=== PATIENT | male | born 1955 | race Caucasian/White ===

== ENCOUNTER → 2017-03-03 | Outpatient (CLI) | payer BC ==
[~2017-03-03] MED LIST: OPTIRAY 320 IV PRN
--- NOTE | 2017-03-03 18:07 | DIAGNOSTIC IMAGING REPORT ---
CT OF THE CHEST WITH IV CONTRAST CLINICAL HISTORY: Metastatic Seibert cell carcinoma. COMPARISON STUDY: No previous studies for comparison. TECHNIQUE: Following the IV administration of 94 mL of Optiray-320, CT of the thorax was performed from the thoracic inlet to the lung bases. Images are reviewed in the axial, sagittal, and coronal planes. IV contrast was administered without complication. A dose lowering technique was utilized adhering to the principles of ALARA. CT DOSE: FINDINGS: Thyroid: There is an ill-defined 2 cm left lobe thyroid nodule containing calcifications. If not previously performed, thyroid ultrasonography should be obtained in follow-up. Thoracic aorta: The thoracic aorta is normal in course and caliber, noting standard 3-vessel arch anatomy. No aneurysm or dissection is seen. Pulmonary vasculature: The pulmonary trunk is normal in caliber. There are no central filling defects identified to suggest pulmonary embolus. Note that this examination was not protocoled for the evaluation of pulmonary emboli. HEART: The heart is normal in size and configuration, without pericardial effusion. Lungs and pleural spaces: No pleural effusions are visualized. There is no focal pulmonary consolidation. There are bibasal atelectatic changes. No suspicious pulmonary masses are visualized. There are several areas of very low suspicion nodular thickening along the fissures. Mediastinum: Mediastinal lymph nodes are the upper limits of normal in diameter measuring up to 9 mm. Hannah: There is no evidence of pathologic hilar adenopathy. Axilla: There is no evidence of pathologic axillary lymphadenopathy. Upper abdomen: There are bilateral adrenal gland masses measuring 35 mm in the right and 31 mm on the left. Skeletal structures: There are no lytic or blastic osseous lesions. IMPRESSION: 1. Multinodular thyroid gland including a dominant 2+ centimeter left lobe thyroid nodule containing calcifications. If not previously performed, thyroid ultrasonography should be obtained in follow-up 2. Mediastinal lymph nodes at the upper limits of normal in size 3. No evidence of intrapulmonary metastasis 4. Bilateral adrenal gland enlargement. Electronically signed by: Gabriel Mack M.D. 03/03/2017 6:05 PM Dictated Date/Time: 03/03/2017 5:58 PM
--- NOTE | 2017-03-03 18:30 | DIAGNOSTIC IMAGING REPORT ---
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 TECHNIQUE: Following the IV administration of 94 mL of Optiray-320, CT scan of the abdomen and pelvis was performed from the lung bases to the proximal femurs. Images are reviewed in the axial, sagittal, and coronal planes. IV contrast was administered without complication. A dose lowering technique was utilized adhering to the principles of ALARA. CT DOSE: 727.11 mGy.cm FINDINGS: Lower chest: There are bibasilar opacities, likely atelectatic. Liver: There are no suspicious hepatic masses. There is focal fat surrounding the falciform ligament. The hepatic veins and portal veins appear patent. Gallbladder: Unremarkable. Spleen: Normal in size and attenuation. Pancreas: Unremarkable. Adrenal glands: There is bilateral adrenal gland enlargement. The right adrenal gland measures 3.5 cm. The left adrenal gland measures 3.1 cm. Kidneys: No solid renal masses are visualized. There are multiple left parapelvic cysts versus mild hydronephrosis. There is no ureteral dilatation. Bowel: There are no transition zones to indicate bowel obstruction. There is no acute diverticulitis. The appendix appears normal. Peritoneum: There is no intraperitoneal free air or abdominal ascites. Vasculature: There are multiple inguinal and abdominal wall collateral vessels. The infrarenal inferior vena cava appears occluded. There are enlarged gonadal veins. There is no evidence of aortic aneurysm. Adenopathy: The presence of the multiple venous collaterals makes evaluation for adenopathy difficult. There is a probable 14 mm aortocaval lymph node. Pelvic viscera: The bladder, and pelvic viscera are unremarkable. Skeletal structures: There is an old superior endplate L2 compression deformity. No destructive lesions are visualized. IMPRESSION: 1. Bilateral adrenal gland enlargement 2. 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 Assessment for adenopathy is difficult due to the multiple collateral veins. There is a probable 14 mm aortocaval lymph node Electronically signed by: Gabriel Mack M.D. 03/03/2017 6:29 PM Dictated Date/Time: 03/03/2017 6:19 PM
== END | disposition home or self-care (01) ==
LOC: C.CTS 15:28
PROVIDERS: ATTEND Student in an Organized Health Care Education/Training Program
DX: I82.412 Acute embolism and thrombosis of left femoral vein (principal); E27.8 Other specified disorders of adrenal gland; Z85.821 Personal history of Merkel cell carcinoma

== ENCOUNTER 2023-06-25 11:48 | Inpatient (IN) ==
--- OUTSIDE RECORDS SUMMARY | 2023-06-25 11:53 | External Medical Summary | Summary of Care ---
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 5 Tab 0 02/22/2019 Active Additional Information Patient taking differently: 15 mgOral DINNER, Reported on 08/10/2022 Zoster Vac Recomb Adjuvanted 50 MCG/0.5ML Intramuscular Suspension Reconstituted (Shingrix)Indication s:Need for vaccination for zoster Inject 0.5 mL into a large muscle now and repeat dose in 60 to 180 days 1 Each 1 07/29/2021 Active Additional Information Patient not taking.Reported on 10/20/2022 Benzonatate 100 MG Oral Capsule (Tesaquiles Sharma)Indications:U pper respiratory tract infection, unspecified type Take by mouth 1 Capsule as needed in the morning AND 1 Capsule as needed at noon AND 1 Capsule as needed in the evening for Cough. 15 Capsule 0 02/16/2022 Active Additional Information Patient not taking.Reported on 10/20/2022 Triamcinolone Acetonide 0.1 % External Cream (Aristocort) Apply to rash on trunk and extremities twice daily as needed 453.6 g 0 08/23/2022 Active Additional Information Patient not taking.Reported on 10/20/2022 Erythromycin 5 MG/GM Ophthalmic Ointment Apply .25 inch ribbon to right eye incision 4 times daily for 14 days then daily at bedtime. 3.5 g 3 09/08/2022 Active Additional Information Patient not taking.Reported on 10/20/2022 Tadalafil 5 MG Oral Tablet (Cialis) Take 1 Tablet by mouth in the morning. prior to intercourse, no more than 1 dose in 24 hours. 30 Tablet 5 02/23/2023 Active Additional Information Patient not taking.Reported on 03/18/2023 documented as of this encounter (statuses as of 03/18/2023) Active Problems Problem Noted Date History of DVT (deep vein thrombosis) Hx of actinic keratosis 12/22/2016 Hx of nonmelanoma skin cancer 12/22/2016 Overview: SCCIS R dorsal forearm near elbow 10/2020, SCC R dorsal forearm 03/2019, prior BCC and SCCs, AKs,no scansin chart Elevated LDL cholesterol level 7 Encounter for antineoplastic chemotherap y 01/20/2016 Metastatic Lykens cell carcinoma to lymp h node 01/12/2016 History of pulmonary embolus (PE) Overview: on lovenox documented as of this encounter (statuses as of 03/18/2023) Resolved Problems Problem Noted Date Resolved Date Atrial fibrillation 10/21/2017 Overview: cardizem gtt initially and then transferred to oral. then A fib resolved. occured when he had PE. Femoral vein thrombosis 10/22/19 Overview: 07/2015, while on Xalrelto documented as of this encounter (statuses as of 03/18/2023) Immunizations Name Administration Dates Next Due COVID-19 mRNA, LNP-s, No Pre serve, 2-Dose Series (Pfizer) 04/29/2021,08/27/2020,07/30/2020 Pneumococcal Conjugate Vacc, 13 Valent (Prevnar) 03/20/2016 Pneumococcal Polysaccharide PPV23 (Pneumovax) 03/20/2015,02/18/2015 SEASONAL INFLUENZA, PF, 6 M & Above, IM , (FLULAVAL or FLUZONE) 02/21/2020 Seasonal Influenza, Quadriva lent Hd (Fluzone Hd) 03/24/2021 Seasonal Influenza, Quadriva lent, No Preserve, IM 03/07/2018,03/07/2017,03/08/2016 TDAP (age 10 and older)(Boostrix) 04/13/2017 04/13/2027 Varicella Zoster Vaccine (Adult) 03/28/2015 documented as of this encounter Social History Tobacco Use Types Packs/Day Years Used Date Smoking Tobacco: Never Smokeless Tobacco: Never Tobacco Cessation:Counseling Given: Not Answered Alcohol Use Standard Drinks/Week Comments No 0 (1 standard drink = 0.6 oz pur e alcohol) Food Insecurity Answer Date Recorded Within the past 12 months, y ou worried that your food would run out before you got money to buy more. Never true 02/10/2023 Within the past 12 months, t he food you bought just didn't last and you didn't have money to get more. Never true 02/10/2023 Sex Assigned at Date Recorded Male 09/21/2018 1:49 PM E DT Job Start Date Occupation Industry Not on file Not on file Not on file documented as of this encounter Last Filed Vital Signs Vital Sign Reading Time Taken Comments Blood Pressure 112/72 03/18/2023 9:53 AM EDT Pulse 65 03/18/2023 9:53 AM EDT Temperature 36.3 C (97.3 F) 03/18/2023 9:53 AM ED T Respiratory Rate 16 03/18/2023 9:53 AM EDT Oxygen Saturation 97% 03/18/2023 9:53 AM EDT Inhaled Oxygen Concentration - - Weight 84.9 kg (187 lb 3.2 oz) 03/18/2023 9:53 A M EDT Height 180.3 cm (5' 11") 03/18/2023 9:53 AM EDT Body Mass Index 26.11 03/18/2023 9:53 AM EDT documented in this encounter Progress Notes * Rosa Marvin Craft, DO - 03/18/2023 10:32 AM EDT Subjective: Don Gray II is a 67 year old male. Chief Complaint Patient presents with Follow Up HPI: 67 year old male here today for a routine follow-up. Hx of Lykens cell cancer and continues to follow with Dr Fairbanks at [facility] and is on Opdivo. Last PET scan showed left thyroid nodule. No new cancer, this was in January. This was stable. Willing to get thyroid scan. Sister with hx of thyroid cancer. His CBC was unremarkable from last month. This was reviewed. Continues to take the Xarelto and is on this daily for hx of recurrent DVT and PE. Remains active daily. Bikes daily. Continues to eat healthy. Takes the Cialis daily for BPH symptoms. He would like psa profile test completed. Carries hx of familial hypercholesterolemia, and would like lipids repeated. 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 He had seen [facility]. He has an arranged COVID booster for Tuesday and will return in a few weeks for the annual flu vaccine. His colonoscopy was completed and showed benign polyps to get repeated in 3 years. 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 (Patient taking differently: Take 15 mg by mouth daily with dinner.) 5 Tab 0 Zoster Vac Recomb Adjuvanted 50 MCG/0.5ML Intramuscular Suspension Reconstituted (Shingrix) Inject 0.5 mL into a large muscle now and repeat dose in 60 to 180 days (Patient not taking: Reported on 10/20/2022) 1 Each 1 Benzonatate 100 MG Oral Capsule (Tessalon Perles) Take by mouth 1 Capsule as needed in the morning AND 1 Capsule as needed at noon AND 1 Capsule as needed in the evening for Cough. (Patient not taking: Reported on 10/20/2022) 15 Capsule 0 Triamcinolone Acetonide 0.1 % External Cream (Aristocort) Apply to rash on trunk and extremities twice daily as needed (Patient not taking: Reported on 10/20/2022) 453.6 g 0 Erythromycin 5 MG/GM Ophthalmic Ointment Apply .25 inch ribbon to right eye incision 4 times daily for 14 days then daily at bedtime. (Patient not taking: Reported on 10/20/2022) 3.5 g 3 Tadalafil 5 MG Oral Tablet (Cialis) Take 1 Tablet by mouth in the morning. prior to intercourse, nomore than 1 dose in 24 hours. (Patient not taking: Reported on 03/18/2023) 30 Tablet 5 No current facility-administered medications for this visit. Review of patient's allergies indicates: No Known Allergies Objective: BP 112/72 (BP Site: Right Arm, BP Position: Sitting, BP Cuff Size: Regular) | Pulse 65 | Temp 36.3 C (97.3 F) (Temporal Artery) | Resp 16 | Ht 1.803 m (5' 11") | Wt 84.9 kg (187 lb 3.2 oz) | MaS923% | BMI 26.11 kg/m | BSA 2.06 m Physical Exam: General: alert, healthy, and no distress Heart: regular rate & rhythm, no murmur, and no gallops Lungs: chest symmetric with normal AP diameter, no chest deformities noted, no chest wall tenderness, lungs clear to auscultation Abdomen: abdomen soft, non-tender, normal bowel sounds, and no masses or organomegaly Extremities: no edema Skin: scar L forearm. Healed well. 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 -last PET from January was reviewed. Follow-up: Return in about 6 months (around 09/16/2023). | Check-out note: Labs today. Flu vaccine appt in 2 weeks. 2 weeks after pneumonia vaccine. US thyroid. Rosa Craft DO documented in this encounter Nursing Notes * DARIN Restrepo - 03/18/2023 9:53 AM EDT Don Gray II is a 67 year old male who presents today for Chief Complaint Patient presents with Follow Up documented in this encounter Plan of Treatment Upcoming Encounters Date Type Specialty Care Team Description 03/22/2023 Office Visit Dermatology La Nena Burns MD [address] [place] [address] Sp, Pulse Dye V Beam [address] [facility] [place], [place] [address] 03/29/2023 Imaging Radiology 07/22/2023 Office Visit Dermatology La Nena Burns MD [address] [place] [address] 09/16/2023 Office Visit Family Medicine Rosa Craft DO [address] [place] [address] [phone] Pending Results Name Type Priority Associated Diagnoses Date /Time PSA WITH FREE PSA IF INDICATED Lab Routine Frequent urination at night 03/18/2023 11:49 AM EDT LIPID PANEL WITH DIRECT LDL IF TG IS HIGH Lab Routine Dyslipidemia, goal LDL below 130 03/18/2023 11:49 AM EDT APOLIPOPROTEIN B Lab Routine Dyslipidemia, goal LDL below 130 03/18/2023 11:49 AM EDT 25-HYDROXY VITAMIN D Lab Routine Vitamin D deficiency 03/18/2023 11:49 AM EDT Scheduled Orders Name Type Priority Associated Diagnoses Order Schedule US HEAD AND NECK Medical Imaging Routine Thyroid nodule Expected: 03/18/2023, Expires: 04/17/2024 PSA WITH FREE PSA IF INDICATED Lab Routine Frequent urination at night Expected: 03/18/2023 (Approximate), Expires: 03/17/2024 LIPID PANEL WITH DIRECT LDL IF TG IS HIGH Lab Routine Dyslipidemia, goal LDL below 130 Expected: 03/18/2023, Expires: 03/18/2024 APOLIPOPROTEIN B Lab Routine Dyslipidemia, goal LDL below 130 Expected: 03/18/2023, Expires: 03/18/2024 25-HYDROXY VITAMIN D Lab Routine Vitamin D deficiency Expected: 03/18/2023 (Approximate), Expires: 03/17/2024 Scheduled Procedures Name Priority Associated Diagnoses Date/Ti me COLONOSCOPY FLEXIBLE PROXIMA L DIAGNOSTIC Recall History of colonic polyps Health Maintenance Due Date Last Done Comments Hepatitis C Screening 1973 Zoster Vaccines (1 of 2) 05/23/2015 03/28/2015 Pneumococcal Vaccine: 65+ Years (4 - PPSV23 or PCV20) 03/20/2020 03/20/2016, 03/20/2015, 02/18/2015 Depression Screening 02/18/2021 02/19/2020 COVID-19 Vaccine (4 - Pfizer risk series) 06/24/2021 04/29/2021, 08/27/2020, 07/30/2020 Influenza Vaccine (FLU shot) (#1) 2023 03/24/2021, 02/21/2020, 02/19/2019, Additional history exists Lipid Panel 02/13/2024 02/12/2019, 01/18, 04/13/2017 COLONOSCOPY-EVERY 3 YRS AGES 18-100 10/25/2025 10/25/2022, 10/25/2022, 07/14/2017, Additional history exists DTaP,Tdap,and Td Vaccines (2 - Td or Tdap) 04/13/2027 04/13/2017 COLONOSCOPY-EVERY 5 YRS AGES 18-100 Discontinued 10/25/2022, 10/25/2022, 07/14/2017, Additional history exists GARDASIL-HPV IMMUNIZATION SERIES Aged Out No longer eligible based on patient's age to complete this topic Hepatitis B Aged Out No longer eligi ble based on patient's age to complete this topic MENINGOCOCCAL (MENACTRA/MENVEO) Aged Out No longer eligible based on patient's age to complete this topic documented as of this encounter Medical Devices Not on filedocumented as of this encounter Visit Diagnoses Diagnosis Thyroid nodule- Primary Nontoxic uninodular goiter Frequent urination at night Nocturia Dyslipidemia, goal LDL below 130 Other and unspecified hyperlipidemia Vitamin D deficiency Unspecified vitamin D deficiency Metastatic Veronika cell carcinoma to lymph node (HCC) Secondary Lykens cell carcinoma documented in this encounter Care Teams Accounts Receivable Assistant Relationship Specialty Start Date End Date Rosa Craft, DO [address] [place] [address] PCP - General Family Medicine 03/02/17 documented as of this encounter
--- OUTSIDE RECORDS SUMMARY | 2023-06-25 11:53 | External Medical Summary ---
Author Name Unknown Address Unknown Organization [id number]:[facility] [address] [facility] [place] [address] Laboratory Report Ordering Provider Test Date Status DOMINICK BRUMFIELD 03/18/2023 11:49:19 Final Observation Date Value Abnormality Reference (Units ) Status Triglyceride 03/18/2023 11:49:19 72 <=174 ( mg/dL) Final Triglyceride Reference Range s (mg/dL):
<150 Acceptable
150-174 Borderline high
175-499 High
>=500 Very high Cholesterol 03/18/2023 11:49:19 206 Above high normal <200 (mg/dL) Final Total Cholesterol Reference Ranges (mg/dL):
<200 Desirable
200-239 Borderline high
>=240 High HDL 03/18/2023 11:49:19 52 >39 (mg/dL ) Final HDL Cholesterol Reference Ra nges (mg/dL):
>=60 High (Desirable)
<50 Low (Undesirable) For Females
<40 Low (Undesirable) For Males NON-HDL CHOLESTEROL 03/18/2023 11:49:19 154 <=159 (mg/dL) Final Non-HDL Cholesterol Referenc e Range (mg/dL):
<100 Target level for high risk ASCVD patient
<130 Optimal for general population
130-159 Near optimal for general population
160-189 Borderline High
190-219 High
>=220 Very High LDL, (calculated) 03/18/2023 11:49:19 140 Above high n ormal <=129 (mg/dL) Final LDL Cholesterol Reference Ra nges (mg/dL):
<70 Target level for high risk ASCVD patient
<100 Optimal for general population
100-129 Near optimal for general population
130-159 Borderline high
160-189 High
>=190 Very high Performing Location [facility] [place] - [address] [facility] [address]
--- OUTSIDE RECORDS SUMMARY | 2023-06-25 11:53 | External Medical Summary | Summary of Care ---
Author Name Unknown Organization [facility] Address [address] [facility] [place] [address] Phone [phone] Care Team Providers Care Credit Card Clerk Name Role Phone VenancioRosa Marvin ACEVEDO Primary Care Provider [phone] Reason for Visit * Reason Comments Laser Procedure Patient here for [facility] for warts on his left great toe. He has noticed discoloration on his nail and wonders if it's from the compound used for the warts. Encounter Details Date Type Department Care Team (Late st Contact Info) Description 05/27/2023 8:15 AM EST Office Visit Dermatology [facility] [address] [facility] [place] [address] La Nena Burns MD [address] [facility] [place] [address] Sp, Pulse Dye V Beam [address] [facility] [place] [address] Plantar wart of left foot* Allergies No known active allergiesdocumented as of this encounter (statuses as of 05/27/2023) Medications Medication Sig Dispensed Refills Start Date [...] as of this encounter (statuses as of 05/27/2023) Active Problems Problem Noted Date Diagnosed Date History of DVT (deep vein thrombosis) 09/21/2017 Hx of actinic keratosis 12/22/2016 Hx of nonmelanoma skin cancer 12/22/2016 Overview: 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 then A fib resolved. occured when he had PE. Femoral vein thrombosis 09/2017 Overview: 07/2015, while on Xalrelto documented as of this encounter (statuses as of 05/27/2023) Immunizations Name Administration Dates Next Due COVID-19 [...] Date Smoking Tobacco: Never Smokeless Tobacco: Never Alcohol Use Standard Drinks/Week Comments No 0 (1 standard drink = 0.6 oz pur e alcohol) PHQ-2 Answer Date Recorded PHQ-2 Score 0 02/19/2020 Hunger Vital Sign Answer Date Recorded Within the past 12 months, y ou worried that your food would run out before you got the money to buy more. Never true 02/11/20 23 Within the past 12 months, t he food you bought just didn't last and you didn't have money to get more. Never true 02/10/2023 Sex and Gender Information Value Date Recorded Sex Assigned at Male 09/21/2018 1:49 PM EDT Gender Identity Male 09/21/2018 1:49 PM EDT Sexual Orientation Straight 09/21/2018 1: 49 PM EDT Job Start Date Occupation Industry Not on file Not on file Not on file documented as of this encounter Progress Notes * La Nena Burns MD - 05/27/2023 11:04 AM EST S: Don Gray II is a 68 year old male for follow up on warts. Last treated 2 month(s) ago withPDL and home therapy. Treatment has resulted in partial clearing. 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 Pulse dye laser treatment 595nm today The procedure, risks, benefits, alternatives and expected outcomes were discussed with the patient and verbal consent was obtained. Time out called. Patient identified, procedure verified, site identified and verified. Patient and staff present in agreement. Eye protection placed. Laser surgery was performed with 595nm PDL using 7 mm spot size with 1.5 pulse width and 14.5 Joules of energy numberof pulses 8. Patient instructed in routine post-op care. Recommended soaking, file w/disposable lisandra board, drop of compound W, and occlusion w/duct tape each evening until wart resolved. Follow up: 3 months skin check as scheduled La Nena Burns MD 05/27/2023 11:04 AM documented in this encounter Nursing Notes * Namrata Banks LPN - 05/27/2023 7:59 AM EST Pt here for laser tx for warts Procedure explained. All questions answered. Consent reviewed and signed. Areas to be treated washed with soap and water Tolerated tx well Post treatment instructions given documented in this encounter Plan of Treatment Upcoming Encounters Date Type Department Care Team (Late st Contact Info) Description 06/28/2023 9:30 AM EST Office Visit Otolaryngology [facility] [address] [place] [address] Mayco Jeffery MD [address] [place] [address] 09/16/2023 8:30 AM EDT Office Visit [facility] [address] [place] [address] Roas Craft DO [address], [place] [id number] Scheduled Procedures Name Priority Associated Diagnoses Date/Ti me COLONOSCOPY FLEXIBLE PROXIMA L DIAGNOSTIC Recall History of colonic polyps Health Maintenance Due Date Last Done Comments Hepatitis C Screening 1971 Zoster Vaccines (1 of 2) 05/23/2015 03/28/2015 Pneumococcal Vaccine: 65+ Years (4 - PPSV23 or PCV20) 03/20/2020 03/20/2016, 03/20/2015, 02/18/2015 Depression Screening 02/18/2021 02/19/2020 COVID-19 Vaccine (4 - 2022- season) 2023 04/29/2021, 08/27/2020, 07/30/2020 Influenza Vaccine (FLU shot) (#1) 2023 03/24/2021, 02/21/2020, 02/19/2019, Additional history exists COLONOSCOPY-EVERY 3 YRS AGES 18-100 10/25/2025 10/25/2022, 10/25/2022, 07/14/2017, Additional history exists DTaP,Tdap,and Td Vaccines (2 - Td or Tdap) 04/13/2027 04/13/2017 Lipid Panel 03/18/2028 03/18/2023, 01/19, 01/27/2018, Additional history exists COLONOSCOPY-EVERY 5 YRS AGES 18-100 Discontinued 10/25/2022, [...] as of this encounter Visit Diagnoses Diagnosis Plantar wart of left foot- Primary Plantar wart documented in this encounter Care Teams Credit Card Clerk Relationship Specialty Start Date End Date Rosa Craft DO [address] [place] [address] PCP - General Family Medicine 03/02/17 documented as of this encounter
--- OUTSIDE RECORDS SUMMARY | 2023-06-25 11:53 | External Medical Summary | Summary of Care ---
Author Name Unknown Organization [facility] Address [address] [facility] [place] [address] Phone [phone] Care Team Providers Care Central Office Supervisor Name Role Phone Venancio Rosarosana Wong DO Primary Care Provider [phone] Reason for Visit * Reason Comments Laser Procedure Patient here for [facility] for plantar warts on his right foot. Encounter Details Date Type Department Care Team Description 03/22/2023 Office Visit Dermatology [facility] Adrianna [place] [address] [facility] [place] [address] La Nena Burns MD [address] [facility] [place] [address] Sp, Pulse Dye V Beam [address] [facility] [place] [address] Plantar wart* Allergies No known active allergiesdocumented as of this encounter (statuses as of 03/22/2023) Medications Medication Sig Dispensed Refills Start Date [...] as of this encounter (statuses as of 03/22/2023) Active Problems Problem Noted Date History of DVT (deep vein thrombosis) Hx of actinic keratosis 12/22/2016 Hx of nonmelanoma skin cancer 12/22/2016 Overview: 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 then A fib resolved. occured when he had PE. Femoral vein thrombosis 10/22/19 Overview: 07/2015, while on Xalrelto documented as of this encounter (statuses as of 03/22/2023) Immunizations Name Administration Dates Next Due COVID-19 [...] Notes * La Nena Burns MD - 03/22/2023 11:46 AM EDT S: Don Gray II is a 67 year old male for follow up on warts. Last treated 1 month(s) ago withPDL and home trt. Treatment has resulted in partial clearing. Other [...] DVT (deep vein thrombosis) Z86.718 O: L heel and superomedial plantar - verrucal plaques, smaller but lichenified, R lateral 2nd toe tiny verrucal papule (no trt today) A: Verruca, plantar P: 1. Pulse dye laser treatment 595nm today (L foot) The procedure, risks, benefits, alternatives and expected outcomes were discussed with the patient and verbal consent was obtained. Time out called. Patient identified, procedure verified, site identified and verified. Patient and staff present in agreement. Eye protection placed. Laser surgery was performed with 595nm PDL using 7 spot size with 1.5 pulse width and 14 Joules of energy number of pulses 24. Patient instructed in routine post-op care. Recommended soaking, file w/disposable lisandra board, drop of compound W (or Rx compound), and occlusion w/duct tape each evening until wart resolved. Follow up: Return visit in 1 month(s) La Nena Burns MD 03/22/2023 11:49 AM documented in this encounter Nursing Notes * Namrata Banks LPN - 03/22/2023 9:47 AM EDT Pt here for laser tx for plantar warts Procedure explained. All questions answered. Consent reviewed and signed. Areas to be treated washed with soap and water Tolerated tx well Post treatment instructions given documented in this encounter Plan of Treatment Upcoming Encounters Date Type Specialty Care Team Description 03/29/2023 Imaging Radiology 05/27/2023 Office Visit Dermatology La Nena Burns MD [address] [place] [address] Sp, Pulse Dye V Beam [address] [place] [address] 07/22/2023 Office Visit Dermatology La Nena Burns MD [address] [place] [address] 09/16/2023 Office Visit Family Medicine Rosa Craft, [address] [address] Scheduled Procedures Name Priority Associated Diagnoses Date/Ti me COLONOSCOPY FLEXIBLE PROXIMA L DIAGNOSTIC Recall History of colonic polyps Health Maintenance Due Date Last Done Comments Hepatitis C Screening 1973 Zoster Vaccines (1 of 2) 05/23/2015 03/28/2015 Pneumococcal Vaccine: 65+ Years (4 - PPSV23 or PCV20) 03/20/2020 03/20/2016, 03/20/2015, 02/18/2015 Depression Screening 02/18/2021 02/19/2020 COVID-19 Vaccine (4 - 2022-24 season) 2023 04/29/2021, 08/27/2020, 07/30/2020 Influenza Vaccine (FLU shot) (#1) 2023 03/24/2021, 02/21/2020, 02/19/2019, Additional history exists Diabetes Screening 01/12/2025 01/12/2022, 0 10/10/2018, 04/13/2017 COLONOSCOPY-EVERY 3 YRS AGES 18-100 10/25/2025 [...] of this encounter Visit Diagnoses Diagnosis Plantar wart- Primary documented in this encounter Care Teams Central Office Supervisor Relationship Specialty Start Date End Date Rosa Craft, [address] [place] [address] PCP - General Family Medicine 03/02/17 documented as of this encounter
--- OUTSIDE RECORDS SUMMARY | 2023-06-25 11:53 | External Medical Summary | Summary of Care ---
Author Name Unknown Organization [facility] Address [address] [facility] [place] [address] Phone [phone] Care Team Providers Care Timber Treatment Plant Operator Name Role Phone Brissa Craft DO Primary Care Provider [phone] Reason for Visit * Reason Comments Skin Check FBSE-concerns today of lesions on left arm Encounter Details Date Type Department Care Team Description 01/06/2023 Office Visit Dermatology [facility] [place] [address] [facility] [place] [address] La Nena Burns MD [address] [facility] [place] [address] Hx of nonmelanoma skin cancer*; AK (actinic keratosis); Skin exam, screening for cancer; Hx of melanoma of skin; Scar Allergies No known active allergiesdocumented as of this encounter (statuses as of 01/06/2023) Medications Medication Sig Dispensed Refills Start Date [...] Additional Information Patient not taking.Reported on 10/20/2022 documented as of this encounter (statuses as of 01/06/2023) Active Problems Problem Noted Date History of DVT (deep vein thrombosis) Hx of actinic keratosis 12/22/2016 Hx of nonmelanoma skin cancer 12/22/2016 Overview: 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 then A fib resolved. occured when he had PE. Femoral vein thrombosis 10/22/19 Overview: 07/2015, while on Xalrelto documented as of this encounter (statuses as of 01/06/2023) Immunizations Name Administration Dates Next Due COVID-19 mRNA, LNP-s, No Pre serve, 2-Dose Series (ngmoco) 04/29/2021,08/27/2020,07/30/2020 Pneumococcal Conjugate Vacc, 13 Valent (Prevnar) 03/20/2016 Pneumococcal Polysaccharide PPV23 (Pneumovax) 03/20/2015,02/18/2015 Seasonal Influenza, Quadriva lent Hd (Fluzone Hd) 03/24/2021 Seasonal Influenza, Quadriva lent, No Preserve, 6 Mons & Above, IM 02/21/2020 Seasonal Influenza, Quadriva lent, No Preserve, IM [...] got money to buy more. Never true 02/21/2020 Within the past 12 months, t he food you bought just didn't last and you didn't have money to get more. Never true 02/21/2020 Sex Assigned at Date Recorded Male 09/21/2018 1:49 PM E DT Job Start Date Occupation Industry Not on file Not on file Not on file documented as of this encounter Patient Instructions * Patient Instructions* Glenn Stuart MD - 01/06/2023 9:48 AM EDT SUNSCREEN USE AND SUN PROTECTION: 1. The best protection is sun avoidance. Seek shade if you can, especially between 9am to 5pm (peaksun hours). 2. Use sunscreen with a Sun Protection Factor (SPF) of 30 or more that protects from Ultraviolet A (UVA) and Ultraviolet B (UVB) wavelength light. This is referred to as broad spectrum sun protection. Unfortunately, even though the protection is broad it is not complete, therefore making sun avoidance the best protection. UVB and UVA have both been implicated in causing skin cancers. Older sunscreens only protected from UVB and sunscreens with added UVA protection should contain Titanium dioxide, Zinc oxide, Mexoryl or Parsol 1789, also known as Avobenzone. 3. Use sun protection daily. Apply 20-30 minutes before going out and reapply every 2 hours. No sunscreen is truly water ''proof'' and it will wash away with sweat, swimming and rubbing. 4. Wear tightly woven, loose fitting (cooler) long sleeved clothing, UV-blocking clothing is best and sun glasses (eyes need protection as well) and wide-brimmed hat (no straw hats with holes becauselight still gets through). HOW TO CHECK YOUR MOLES: 1. Check moles every month and have a relative/friend check your back if possible. The use of a handheld mirror can help as well. The most common place for melanoma in women are the back and legs, and for men is the back. 2. Look for the ABCD's of melanoma: Asymmetry (strange shape - not round or oval), Borders (notched, scalloped or irregular edges), Color (very black or multi-colored), Diameter (size greater than 5mm or the size greater than a pencil eraser). 3. Changes in old moles and growths of new ones in relation to the ABCD's are the most important factors. 4. Some people have many moles that fit the ABCD criteria. At times the best thing is to look for the ''Ugly Duckling'' mole - the one that stands out the most. 5. If there are any questions on a mole please do not hesitate in calling our office at [phone] to have it evaluated. documented in this encounter Progress Notes * Glenn Stuart MD - 01/06/2023 9:50 AM EDT SUBJECTIVE: History of Present Illness: Don Gray II is a 67 year old male seen today for a skin check . Last visit: 10/29/2022 (in office), Visit date not found (telemedicine). Hx AK, melanoma and NMSC- R medial cancer nodular BCC- Mohs 2022; malignant invasive melanoma 0.4mm- 2022. 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 Sena and in [place] A spot on the left arm and two spots on the R lower leg he would like evaluated. REVIEW OF SYSTEMS: SKIN: No other new or changing moles. CONSTITUTIONAL: No fevers/chills, weight change, malaise, lymphadenopathy. MEDICA TIONS: Current Outpatient Medications Medication Sig Dispense Refill [...] Each 1 Benzonatate 100 MG Oral Capsule (Sandra Sharma) Take by mouth 1 Capsule as needed [...] taking: Reported on 10/20/2022) 3.5 g 3 No current facility-administered medications for this visit. ALLERG IES: Patient has no known allergies. OBJECTIVE: GEN: Healthy, alert, no distress and pleasant. SKIN: Detailed exam of hair, face including lids and lips, oral cavity, neck, chest, abdomen, back,bilateral upper ext. (arm, hand, fingers), bilateral lower ext. (leg, foot, toes) and palpation of scalp completed and are normal except: A. Located at the scalp are gritty erythematous macules/papules consistent with actinic keratoses B. Well-healed scars at surgical sites. C. Verrucous plaques on both plantar feet ASSESS MENT/PLAN: Skin cancer screening: No features concerning for malignancy on exam today. Continue to monitor with monthly self-skin exams. Patient counseled on ABCDs of melanoma. Sunscreen and photoprotection advised. Patient to contact physician for any new or changing lesions or other concerns. Dermoscopy was used for physical examination of pigmented lesions during todays office visit. Actinic damage and history of cutaneous malignancy - Scars examined with no evidence of tumor recurrence - The signs and symptoms of skin cancer were reviewed and the patient was advised to practice sun protection and sun avoidance, use daily sunscreen, and perform regular self skin exams. Hx of malignant melanoma: - scar examined. No sign of disease. - sunscreen and photoprotection advised. Actinic Keratoses distributed over the scalp. - A total of 5 lesion(s) were treated with cryotherapy. - The patient was counseled on the premalignant nature of these lesions, and they were treated withcryotherapy today which the patient is agreeable to. The risks, benefits, indications, alternatives, and complications were discussed, and consent was obtained. - If no resolution in 3-4 weeks patient to notify clinic for re-evaluation Plantar warts - currently using 5-FU/salicylic acid combo for the past 3 months. - not great improvement. - will follow up in a month as a PDL visit and consider other options at that time as well. Follow up: 6 months, melanoma clinic Patient was seen and examined with Dr. Burns. Glenn Stuart, PhD 01/06/2023 10:08 AM Ref: SELF[[id number]] NO STREET ADDRESS AVAILABLE None (office) None (fax) PCP: BRISSA CRAFT [address] [place] [address] [phone] documented in this encounter Nursing Notes * Nicolette Mederos MED ASSIST - 01/06/2023 9:32 AM EDT Chief Complaint Patient presents with Skin Check FBSE-concerns today of lesions on left arm 10/29/2022 documented in this encounter Plan of Treatment Upcoming Encounters Date Type Specialty Care Team Description 02/16/2023 Office Visit Dermatology La Nena Burns MD [address] [facility] [place] [address] SpYessy Dye V Beam [address] [facility] [place] [address] 03/04/2023 Office Visit Family Medicine Brissa Craft DO [address] [place] [address] 07/22/2023 Office Visit Dermatology La Nena Burns MD [address] [place] [address] Scheduled Procedures Name Priority Associated Diagnoses Date/Ti me COLONOSCOPY FLEXIBLE PROXIMA L DIAGNOSTIC Recall History of colonic polyps Health Maintenance Due Date Last Done Comments Hepatitis C Screening 1973 Zoster Vaccines (1 of 2) 05/23/2015 03/28/2015 Pneumococcal Vaccine: 65+ Years (4 - PPSV23 or PCV20) 03/20/2020 03/20/2016, 03/20/2015, 02/18/2015 Depression Screening, Annual for Pts 12 and Over 02/18/2021 02/19/2020 COVID-19 Vaccine (4 - Pfizer [...] as of this encounter Visit Diagnoses Diagnosis Hx of nonmelanoma skin cancer- Primary Personal history of other malignant neoplasm of skin AK (actinic keratosis) Actinic keratosis Skin exam, screening for cancer Screening for malignant neoplasm of the skin Hx of melanoma of skin Personal history of malignant melanoma of skin Scar Scar condition and fibrosis of skin documented in this encounter Care Teams Timber Treatment Plant Operator Relationship Specialty Start Date End Date Brissa Craft, DO [address] [place] [address] PCP - General Family Medicine 03/02/17 documented as of this encounter
--- OUTSIDE RECORDS SUMMARY | 2023-06-25 11:53 | External Medical Summary | Summary of Care ---
Author Name Unknown Organization [facility] Address [address] [place] [address] Phone [phone] Care Team Providers Care Security Researcher Name Role Phone Rosa Craft DO Primary Care Provider [phone] Reason for Referral * Evaluate & Treat - Unlimited Visits (Within 3 days (urgent)) - Authorized Specialty Diagnoses / Procedures Referred By Lillian schmidt Referred To Contact Otolaryngology Diagnoses Thyroid nodule Rosa Craft DO [address] [place] [address] Referral ID Status Reason Start Date Expiration Date Visits Requested Visits Authorized [id number] Authorized Specialty Services Required 3 [phone] Question Answer Referral Priority Within 3 days (urgent) Where should this appointment be scheduled? [place] Reason for Referral Thyroid/Parathyroid/Oral Lesions/Head/Neck/Cancer Conditions Specific Condition: Thyroid Has the patient had a Ultrasound Head/Neck and a TSHw/Free T4 in the past 6 months? Yes Reason for Visit * Reason Onset Date Comments Test Results 03/29/2023 Abnormal US resu lts Pls review DOUG Encounter Details Date Type Department Care Team Description 03/29/2023 Telephone [facility] [address] [place] [phone] Rosa Craft DO [address] [place] [address] Test Results (Abnormal US results /Pls rev... Allergies No known active allergiesdocumented as of this encounter (statuses as of 03/31/2023) Medications Medication Sig Dispensed Refills Start Date [...] on 10/20/2022 Benzonatate 100 MG Oral Capsule (Tessalon Perljone)Indications:U pper respiratory tract infection, unspecified type Take [...] as of this encounter (statuses as of 03/31/2023) Active Problems Problem Noted Date History of [...] as of this encounter (statuses as of 03/31/2023) Resolved Problems Problem Noted Date Resolved Date Atrial fibrillation 10/21/2017 Overview: cardizem gtt initially and then transferred to oral. then A fib resolved. occured when he had PE. Femoral vein thrombosis 10/22/19 Overview: 07/2015, while on Xalrelto documented as of this encounter (statuses as of 03/31/2023) Immunizations Name Administration Dates Next Due COVID-19 [...] on file documented as of this encounter Miscellaneous Notes * Telephone Encounter - KATHY Perez - 03/31/2023 11:36 AM EDT Date: 06/28/2023 Status: Lilliana Time: 9:30 AM Length: 30 Visit Type: NEW THYROID/PARATHYROID [[id number]] Reg Status: Verified Copay: $0.00 Provider: Mayco Jeffery MD Department: OTOLARYNGOLOGY [facility] * Telephone Encounter - DARIN Restrepo - 03/31/2023 10:39 AM EDT The patient is aware, and verbalizes an understanding. Pt states that he has appt.to be seen at [place] * Telephone Encounter - Rosa Craft DO - 03/31/2023 9:22 AM EDT Called and left VM regarding US. Thyroid nodule and suggesting a biopsy. 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 ENT referral placed Thank you * Telephone Encounter - KATHY Washington - 03/31/2023 9:05 AM EDT Real parra calling to f/u on msg. Advised that report is in chart, and I will forward this encounter to PCP for review. * Telephone Encounter - AREN Pina - 03/29/2023 7:00 PM EDT Shaka- The radiologist discovered an unexpected or indeterminate finding on Don Gray II ([id number]) and asks that you review the following report. Study Type:US HEAD AND NECK Date of Study: 03/29/2023 IMPRESSION: 1. Large solid isoechoic nodule replacing the left lobe measuring 4.9 x 2.8 x 3 cm, TR-4. Ultrasound-guided fine-needle aspiration is recommended. 2. Additional bilateral thyroid nodules as above. Continued imaging surveillance is recommended in 1 year. Please respond to this encounter to acknowledge receipt of this message and take responsibility to ensure this report is reviewed. Thank you, AREN Pina Client Service Rep Diagnostic Medicine [place] documented in this encounter Plan of Treatment Upcoming Encounters Date Type Specialty Care Team Description 05/27/2023 Office Visit Dermatology La Nena Burns MD [address] [facility] [place] [address] Sp, Pulse Dye V Beam [address] [facility] [place] [address] 06/28/2023 Office Visit Otolaryngology Mayco Jeffery MD [address] [place], [place] [phone] 07/22/2023 Office Visit Dermatology La Nena Burns MD [address] [place] [address] 09/16/2023 Office Visit Family Medicine Rosa Craft, [facility] [address], [place] [id number] Scheduled Procedures Name Priority Associated Diagnoses Date/Ti me COLONOSCOPY FLEXIBLE PROXIMA L DIAGNOSTIC Recall History of colonic polyps Scheduled Referrals Name Type Priority Associated Diagnoses Order Schedule OTOLARYNGOLOGY REFERRAL OP Referral Within 3 days (urgent) Thyroid nodule Ordered: 03/31/2023 Health Maintenance Due Date Last Done Comments [...] Diagnosis Thyroid nodule- Primary Nontoxic uninodular goiter documented in this encounter Care Teams Security Researcher Relationship Specialty Start Date End Date Rosa Craft, [address] [place] [address] PCP - General Family Medicine 03/02/17 documented as of this encounter
--- OUTSIDE RECORDS SUMMARY | 2023-06-25 11:53 | External Medical Summary | Summary of Care ---
Author Name Unknown Organization [facility] Address [address] [facility] [address] Phone [phone] Care Team Providers Care Cardiac Rehab Nurse Name Role Phone Venancio Rosa Marvin ACEVEDO Primary Care Provider [phone] Reason for Visit * Reason Comments Laser Procedure Warts on feet. Encounter Details Date Type Department Care Team Description 02/16/2023 Office Visit Dermatology [facility] [place] [address] [facility] [place] [address] La Nena Burns MD [address] [facility] [place] [address] Sp, Pulse Dye V Beam [address] [facility] [place] [address] Plantar wart* Allergies No known active allergiesdocumented as of this encounter (statuses as of 02/16/2023) Medications Medication Sig Dispensed Refills Start Date [...] as of this encounter (statuses as of 02/16/2023) Active Problems Problem Noted Date History of [...] as of this encounter (statuses as of 02/16/2023) Resolved Problems Problem Noted Date Resolved Date Atrial fibrillation 10/21/2017 Overview: cardizem gtt initially and then transferred to oral. then A fib resolved. occured when he had PE. Femoral vein thrombosis 10/22/19 Overview: 07/2015, while on Xalrelto documented as of this encounter (statuses as of 02/16/2023) Immunizations Name Administration Dates Next Due COVID-19 mRNA, LNP-s, No Pre serve, 2-Dose Series (Light Extraction) 04/29/2021,08/27/2020,07/30/2020 Pneumococcal Conjugate Vacc, 13 Valent (Prevnar) 03/20/2016 Pneumococcal Polysaccharide PPV23 (Pneumovax) 03/20/2015,02/18/2015 Seasonal Influenza, PF, 6 mo ns & Above, IM , (Flulaval) 02/21/2020 Seasonal Influenza, Quadriva lent Hd (Fluzone [...] Notes * La Nena Burns MD - 02/16/2023 8:53 AM EDT S: Don Gray II is a 67 year old male for follow up on warts. Last treated 3 month(s) ago withPDL and home wart peel. Treatment has resulted in partial clearing. 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 Pulse dye laser treatment 595nm [...] 14 Joules of energy number of pulses 40. Patient instructed in routine post-op care. Recommended soaking, file w/disposable lisandra board, 5FU/joe acid cream, and occlusion w/duct tape each evening until wart resolved. Follow up: 1 month La Nena Burns MD 02/16/2023 8:53 AM documented in this encounter Nursing Notes * Osiris Agee LPN - 02/16/2023 8:42 AM EDT Patient identified by name and date of . Do you have any concerns about pain management for today's visit? No Living Will or Advance Directive for Health Care as noted on problem list. [facility] is a way you can talk to your provider online through e-mail. Would you like to sign up? I can activate it for you? ALREADY ACTIVE Chief Complaint Patient presents with Laser Procedure Warts on feet. documented in this encounter Plan of Treatment Upcoming Encounters Date Type Specialty Care Team Description 02/24/2023 Office Visit Family Medicine Rosa Craft, DO [address] [place] [address] 03/22/2023 Office Visit Dermatology La Nena Burns MD [address] [place] [address] Sp, Pulse Dye V Beam [address] [place] [address] 07/22/2023 Office Visit Dermatology La Nena Burns MD [address] [place] [address] Scheduled Procedures Name Priority Associated Diagnoses Date/Ti [...] Primary documented in this encounter Care Teams Cardiac Rehab Nurse Relationship Specialty Start Date End Date Rosa Craft, [address] [place], [place] [phone] PCP - General Family Medicine 03/02/17 documented as of this encounter
--- OUTSIDE RECORDS SUMMARY | 2023-06-25 11:53 | External Medical Summary | Summary of Care ---
Author Name Unknown Organization [facility] Address [address] [facility] [place] [address] Phone [phone] Care Team Providers Care Pigment Weigher Name Role Phone Brissa Craft DO Primary Care Provider [phone] Reason for Visit * Reason Comments Skin Check FBSE-concerns today of lesions on left arm Encounter Details Date Type Department Care Team Description 01/06/2023 Office Visit Dermatology [facility] [place] [address] [facility] [place] [address] La Nena Burns MD [address] [facility] [place] [address] [place] (actinic keratosis)*; Hx of nonmelanoma skin cancer; Skin exam, screening for cancer; Hx of melanoma of skin; Scar Allergies No known active allergiesdocumented as of this encounter (statuses as of 01/12/2023) Medications Medication Sig Dispensed Refills Start Date [...] as of this encounter (statuses as of 01/12/2023) Active Problems Problem Noted Date History of DVT (deep vein thrombosis) Hx of actinic keratosis 12/22/2016 Hx of nonmelanoma skin cancer 12/22/2016 Overview: 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 then A fib resolved. occured when he had PE. Femoral vein thrombosis 10/22/19 Overview: 07/2015, while on Xalrelto documented as of this encounter (statuses as of 01/12/2023) Immunizations Name Administration Dates Next Due COVID-19 mRNA, LNP-s, No Pre serve, 2-Dose Series (Bubbles) 04/29/2021,08/27/2020,07/30/2020 Pneumococcal Conjugate Vacc, 13 Valent (Prevnar) [...] not hesitate in calling our office at [phone] to have it evaluated. documented in this encounter Progress Notes * La Nena Burns MD - 01/12/2023 10:26 PM EDT I have discussed the patient's management with the medical trainee and agree with the note. Please refer to the documented findings and plan of care. This patient's visit today consisted of an evaluation and procedure. I was present and confirmed the findings of the history and exam, and was present for the entire procedure. 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), retroperitoneal mass, on Opdivo/nivolumab; metastatic, [...] Glenn Stuart, PhD 01/06/2023 10:08 AM Ref: SELF[[id number]] NO STREET ADDRESS AVAILABLE None (office) None (fax) PCP: BRISSA CRAFT [address] [place] [address] [phone] documented in this encounter Nursing Notes * TEMITOPE Jarvis - 01/06/2023 9:32 AM EDT Chief Complaint Patient presents with Skin Check FBSE-concerns today of lesions on left arm 10/29/2022 documented in this encounter Plan of Treatment Upcoming Encounters Date Type Specialty Care Team Description 02/16/2023 Office Visit Dermatology La Nena Burns MD [address] [place] [address] Sp, Pulse Dye V Beam [address] [facility] [place] [address] 03/04/2023 Office Visit Family Medicine Brissa Craft, DO [address] [place] [address] 07/22/2023 Office Visit Dermatology La Nena Burns MD [address] [place] [address] Scheduled Procedures Name Priority Associated Diagnoses Date/Ti [...] as of this encounter Visit Diagnoses Diagnosis AK (actinic keratosis)- Primary Actinic keratosis Hx of nonmelanoma skin cancer Personal history of other malignant neoplasm of skin Skin exam, screening for cancer Screening for malignant neoplasm of the skin Hx of melanoma of skin Personal history of malignant melanoma of skin Scar Scar condition and fibrosis of skin documented in this encounter Care Teams Pigment Weigher Relationship Specialty Start Date End Date Brissa Craft DO [address] [place] [address] PCP - General Family Medicine 03/02/17 documented as of this encounter
--- OUTSIDE RECORDS SUMMARY | 2023-06-25 11:53 | External Medical Summary | Summary of Care ---
Author Name Unknown Organization [facility] Address [address] [place] [address] Phone [phone] Care Team Providers Care Senior Network Administrator Name Role Phone HollandRosa chandler Primary Care Provider [phone] Reason for Visit * Reason Onset Date Comments Appointment 01/04/[address] jose recinos call to resched. pt resched for 01/06 Encounter Details Date Type Department Care Team Description 01/04/2023 Telephone Dermatology [facility] [place] [address] [place] [address] Services, Scheduling [address] [place] [address] Appointment (pt returned dr vega ca... 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 then A fib resolved. occured when he had PE. Femoral vein thrombosis 10/22/19 18 Overview: 07/2015, while on Xalrelto documented as of this encounter (statuses as of 04/05/2023) Immunizations Name Administration Dates Next Due COVID-19 mRNA, LNP-s, No Pre serve, 2-Dose Series (Nostalgia Bingo) 04/29/2021,08/27/2020,07/30/2020 Pneumococcal Conjugate Vacc, 13 Valent (Prevnar) [...] Miscellaneous Notes * Telephone Encounter - KATHY Sanchez - 01/04/2023 5:20 PM EDT Shaka pt returned dr vega call to resched. pt resched for: Don Gray II Date: 01/06/2023 Status: Lilliana Time: 9:30 AM Length: 30 Visit Type: ACUTE [[id number]] Reg Status: Verified Copay: $0.00 Provider: La Nena Burns MD Department: DERMATOLOGY [facility] Please call pt if this appt does not work. Thank you, KATHY Sanchez documented in this encounter Plan of Treatment Upcoming Encounters Date Type Specialty Care Team Description 05/27/2023 Office Visit Dermatology La Nena Burns MD [address] [place] [address], [place] [address] Sp, Pulse Dye V Beam [address] [facility] [place] [address] 06/28/2023 Office Visit Otolaryngology Mayco Jeffery MD [address] [place] [address] 07/22/2023 Office Visit Dermatology La Nena Burns MD [address] [place] [address] 09/16/2023 Office Visit Family Medicine Rosa Craft, [address] [place] [address] Scheduled Procedures Name Priority Associated Diagnoses Date/Ti [...] Not on filedocumented as of this encounter Care Teams Senior Network Administrator Relationship Specialty Start Date End Date Rosa Craft, [address] [place] [address] PCP - General Family Medicine 03/02/17 documented as of this encounter
--- OUTSIDE RECORDS SUMMARY | 2023-06-25 11:53 | External Medical Summary ---
Author Name Unknown Address Unknown Organization K01:LABORATORY [facility] [place] - [address] [place] [address] Laboratory Report Ordering Provider Test Date Status DOMINICK BRUMFIELD 03/18/2023 11:49:19 Final Observation Date Value Abnormality Reference (Units ) Status PSA 03/18/2023 11:49:19 1.35 <4.10 (ng/ mL) Final Total PSA is within referenc e interval. Free PSA testing is not indicated. Performing Location LABORATORY [facility] - [address] [place] [address]
--- OUTSIDE RECORDS SUMMARY | 2023-06-25 11:53 | External Medical Summary | Summary of Care ---
Author Name Unknown Organization [facility] Address [address] [place] [address] Phone [phone] Care Team Providers Care Wastewater Engineer Name Role Phone Venancio Rosa Marvin ACEVEDO Primary Care Provider [phone] Reason for Visit * Reason Comments Outpatient Testing Encounter Details Date Type Department Care Team Description 03/18/2023 Laboratory Laboratory, [facility] [address] [place] [address] [facility] Laboratory [address] [place] [address] Frequent urination at night; Dyslipidemia, goal LDL below 130; Vitamin D deficiency Allergies No known active allergiesdocumented as of [...] on 10/20/2022 Benzonatate 100 MG Oral Capsule (Tessalnino Sharma)Indications:U pper respiratory tract infection, unspecified type [...] Encounter for antineoplastic chemotherap y 01/20/2016 Metastatic [place] cell carcinoma to lymp h node 01/12/2016 [...] on file documented as of this encounter Plan of Treatment Upcoming Encounters Date Type Specialty Care Team Description 03/22/2023 Office Visit Dermatology La Nena Burns MD [address] [place] [id number] Sp, Pulse Dye V Beam [address] [place] [address] [id number] 03/29/2023 Imaging Radiology 07/22/2023 Office Visit Dermatology La Nena Burns MD [address] [id number] 09/16/2023 Office Visit Family Medicine Rosa Craft, DO [address] [place] [address] Pending Results Name Type Priority Associated Diagnoses [...] D deficiency 03/18/2023 11:49 AM EDT Scheduled Procedures Name Priority Associated Diagnoses Date/Ti [...] as of this encounter Visit Diagnoses Diagnosis Frequent urination at night Nocturia Dyslipidemia, goal LDL below 130 Other and unspecified hyperlipidemia Vitamin D deficiency Unspecified vitamin D deficiency documented in this encounter Care Teams Wastewater Engineer Relationship Specialty Start Date End Date Rosa Craft, [address] [place] [address] PCP - General Family Medicine 03/02/17 documented as of this encounter
--- OUTSIDE RECORDS SUMMARY | 2023-06-25 11:53 | External Medical Summary ---
Author Name Unknown Address Unknown Organization : Laboratory Report Ordering Provider Test Date Status DOMINICK BRUMFIELD 03/18/2023 11:49:19 Final Observation Date Value Abnormality Reference (Units ) Status Apolipoprotein B 03/18/2023 11:49:19 116 Above high no rmal <90 (mg/dL) Final Reference Range: <90
Ris k Category:
Optimal < 90
Moderate 90 - 119
High > or = 120
Cardiovascular event risk category cut points
(optimal, moderate, high) are based on National
Lipid Association recommendations-Marcin TA et al.
J Clin Lipid. 2015;9:129-169 and Hany BEAVERS et al.
Endocr Pract. 2017;23(Suppl 2):1-87.

Test Performed at:
[facility]
[address] [facility]
[place] [address]
Arturo No M.D., Ph.D.,Director of Laboratories Performing Location
[2023-06-25] MEDS ORDERED: SODIUM CHLORIDE 0.9% 1,000 ML IV ONE (11:57)
--- NOTE | 2023-06-25 12:11 | Emergency Department Note ---
Impression & Plan SIRS (systemic inflammatory response syndrome), Pneumonia, COVID-19, Mass of right adrenal gland ED Provider Note NAME: DEB NICKERSON AGE: 68 SEX: M ARRIVES VIA: Walk-In INFORMANT: Patient ED PROVIDER(S): Rajesh Ortega MD CHIEF COMPLAINT: Shortness of breath. 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 He has not measured his temperature but has felt feverish. He denies any nausea or vomiting but has had decreased appetite and admits he is probably not hydrating very well. He denies chest pain but does feel short of breath. On my evaluation the patient is ill-appearing in no distress, febrile to 38.5 with HR in the 100s and otherwise stable vital signs. O2 saturation ranged from 89-low 90s and so was placed on 3L nasal cannula. He appears clinically dry. Lungs with intermittent wheezes of bilateral bilateral lung posadas with mild rhonchi of right mid to lower lung posadas. EKG without overt acute ischemia. CXR demonstrates right lower lobe consolidation suspicious for pneumonia per my personal preliminary review/interpretation. WBC 15.4 with neutrophil predominance though no significant left shift, nonspecific and in the setting of the patient's recent steroid course. H/H is similar to prior. Platelets 415 K, nonspecific and likely reactive. Chemistry without metabolic acidosis. Lactic acid 1.5, within normal limits. LFTs unremarkable. Initial high-sensitivity troponin 22, nonspecific. Lipase not elevated. Procalcitonin is not elevated. TSH was normal limits. UA without evidence of infection. CTA of the chest was performed and was negative for PE though does show significant right lower lobe consolidation Where extensive secretions within the bronchus intermedius and segmental bronchi are occluded and mild tree-in-bud nodules in the right middle lobe are suspicious for infection. Pulmonary consultation for consideration of bronchoscopy to exclude endobronchial lesion is suggested. Additional note is made of mildly enlarged mediastinal and right hilar lymph nodes likely reactive. CT of the on pelvis demonstrates a 7.3 cm mixed attenuation right adrenal mass increased in size since February 2017 without more recent for comparison though the patient reports that this had been eval with biopsy and was a benign adenoma. Other considerations include primary adrenal lesion such as pheochromocytoma or adrenal cortical carcinoma. A colicin tumor with metastases is also within the differential. Findings reviewed with the patient he does agree with plan for admission for further management of his pneumonia. Empiric treatment was initiated with IV cefepime and doxycycline. Patient was treated with 30 cc/kg of IV fluids with normal saline. Patient also was treated with Solu-Medrol for component of bronchospasm, DuoNeb, guaifenesin. Case was discussed with Don Mckeon, with Dr. Antonia avilaist who will evaluate the patient for admission. Respiratory viral panel/[employer] subsequent result and was positive for COVID-19. Admitting team updated. Further management per admitting team. Triage Nursing notes reviewed and agree them. Prior/external medical records reviewed Vital Signs: reviewed Differential diagnosis: Reactive airway disease, pneumonia, pneumothorax, COPD, CHF, infections, cardiac ischemia, pulmonary embolism, musculoskeletal, gastrointestinal, as well as other pathologies. ER treatment provided: See below. Diagnostics interpreted by me: ECG: Sinus tachycardia with PACs, 101 bpm, left anterior fascicular block, no overt ST elevation or depression, QTc 446, QRS 98. Cardiac Monitoring: An order for continuous cardiac monitoring was placed and demonstrated Sinus tachycardia with PACs, 101 bpm Laboratory studies: See below Imaging studies: See below Consultation(s): Don Mckeon, with Dr. Antonia Ochoa hospitalist HPI: The patient is a pleasant 68-year-old gentleman with a past medical history of prior [place] cell carcinoma treated in 2015 subsequently in remission on immunotherapy with Opdivo, history of PE on Xarelto who presents to the emergency department via walk-in, accompanied by his for worsening cough, congestion with feverishness that has been progressing over the past several weeks where he was seen by his oncologist and treated with course of steroids and azithromycin which he completed today but reports no improvement and felt worsening today. He has not measured his temperature but has felt feverish. He denies any nausea or vomiting but has had decreased appetite and admits he is probably not hydrating very well. He denies chest pain but does feel short of breath. ROS: See above HPI for pertinent positives & negatives. A total of 10 systems reviewed and were otherwise negative. VITALS:See Below PHYSICAL EXAMINATION: GENERAL: Awake, alert, ill-appearing, in no distress HENT: Normocephalic, atraumatic. Oropharynx with dry mucous membranes and otherwise unremarkable. EYES: Normal conjunctiva. Sclera non-icteric. NECK: Supple. No nuchal rigidity. FROM. No JVD. RESPIRATORY: Lungs with intermittent wheezes of bilateral bilateral lung posadas with mild rhonchi of right mid to lower lung posadas. CARDIAC: Tachycardic rate, normal rhythm. Extremities warm and well perfused. Pulses equal. ABDOMEN: Soft, non-distended. No tenderness to palpation. No rebound or guarding. No masses. RECTAL: Deferred. MUSCULOSKELETAL: Chest examination reveals no tenderness. The back is symmetrical on inspection without obvious abnormality. There is no CVA tenderness to palpation. No joint edema. LOWER EXTREMITIES: Calves are equal size bilaterally and non-tender. No edema. No discoloration. NEURO: Normal sensorium. No sensory or motor deficits noted. SKIN: No rash or jaundice noted. ED COURSE: Critical Care: I have personally spent greater than 35 minutes of critical care time in the direct management of this patient. This includes bedside care, interpretation of diagnostic studies, and testing, discussion with consultants, patient, and family members, and other required patient management activities. This 35 minutes is in excess of all separately billable procedures. Rajesh Ortega MD Past Med/Surg History Medical History History of [place] cell carcinoma Immunotherapy Mass of right adrenal gland Pulmonary embolism Social History Smoking Status: Never smoker Preferred Language: Armenian Feels Safe at Home: Yes Allergies Allergies Allergy/AdvReac Type Severity Reaction Status Date / Time No Known Allergies Allergy Unverified 08/10/21 19:21 Home Meds Home Medications Medication Instructions Recorded Confirmed rivaroxaban 15 mg tablet (Xarelto) 15 mg PO DAILY 08/10/21 06/25/23 Opdivo See Rx Instructions .Route .COMPLEX 06/25/23 06/25/23 albuterol sulfate 90 mcg/actuation See Rx Instructions .Route .COMPLEX 06/25/23 06/25/23 aerosol inhaler methylprednisolone 4 mg tablets in 4 mg PO UD 06/25/23 06/25/23 a dose pack Results & Data (ED) Vital Signs Vital Signs - 24 hr 06/25/23 11:53 06/25/23 12:45 06/25/23 13:56 Temperature 36.6 C 38.4 C H 37.4 C Temperature Source Temporal Artery Scan Oral Oral Pulse Rate 101 H Pulse Rate [Apical] 105 H Respiratory Rate 20 19 Respiratory Effort / Characteristics Non-Labored Non-Labored Respiratory Depth Normal Normal Blood Pressure 116/72 Blood Pressure [Right Arm] 115/74 Blood Pressure Mean 86 Blood Pressure Mean [Right Arm] 87 Pulse Oximetry 89 L 91 Oxygen Delivery Method Room Air Nasal Cannula Oxygen Flow Rate 3 Sepsis Recent Fever Within 48 Hours No Sepsis New/Unexplained Change in Mental Status No Sepsis Action Taken by Nursing No Action Required 06/25/23 15:33 06/25/23 15:34 Temperature Temperature Source Pulse Rate 68 Pulse Rate [Apical] Respiratory Rate 17 Respiratory Effort / Characteristics Respiratory Depth Blood Pressure Blood Pressure [Right Arm] Blood Pressure Mean Blood Pressure Mean [Right Arm] Pulse Oximetry 94 Oxygen Delivery Method Room Air Room Air Oxygen Flow Rate 94 Sepsis Recent Fever Within 48 Hours Sepsis New/Unexplained Change in Mental Status Sepsis Action Taken by Nursing Laboratory Data Attestation: I reviewed the patient's lab results. 06/25/23 12:05 06/25/23 12:05 Lab Results 06/25/23 06/25/23 06/25/23 Range/Units 12:05 12:47 13:51 WBC 15.42 H (4.8-10.8) K/ul RBC 4.40 L (4.70-6.10) M/uL Hgb 13.4 L (14.0-18.0) g/dl Hct 41.3 L (42.0-52.0) % MCV 93.9 (80.0-100.0) fL MCH 30.5 (25.0-34.0) pg MCHC 32.4 (32.0-36.0) g/dL RDW Std Deviation 45.0 (36.4-46.3) fL RDW Coeff of Yazmin 13.0 (11.5-14.5) % Plt Count 415 H (130-400) K/uL MPV 9.1 L (9.4-12.4) fL Immature Gran % (Auto) 1.2 % Neut % (Auto) 85.8 % Lymph % (Auto) 5.8 % [place] % (Auto) 6.9 % Eos % (Auto) 0.0 % Baso % (Auto) 0.3 % Neut # (Auto) 13.24 H (1.40-6.50) K/uL Lymph # (Auto) 0.90 L (1.20-3.40) K/uL [place] # (Auto) 1.06 H (0.11-0.59) K/uL Eos # (Auto) 0.00 (0.00-0.50) K/uL Baso # (Auto) 0.04 (0.00-0.20) K/uL Immature Gran # (Auto) 0.18 (0.01-0.20) K/uL Sodium 135 L (136-145) mmol/L Potassium 4.3 (3.5-5.1) mmol/L Chloride 98 (98-107) mmol/L Carbon Dioxide 27 (21-32) mmol/L Anion Gap 10 (3-11) BUN 17 (6-23) mg/dl Creatinine 1.06 (0.6-1.4) mg/dl Est Cr Clr Drug Dosing 67.0 ml/min Est GFR ( Amer) 82.0 ml/min Est GFR (Non-Af Amer) 70.8 ml/min BUN/Creatinine Ratio 16.0 (10-20) Glucose 116 H (70-99(Fasting)) mg/dl Lactate 1.2 (0.4-2.0) mmol/L Calcium 9.8 (8.6-10.3) mg/dl Magnesium 2.0 (1.7-2.4) mg/dl Total Bilirubin 1.0 (0.2-1.0) mg/dl AST 13 (13-39) U/L ALT 13 (7-52) U/L Alkaline Phosphatase 91 (34-104) U/L Troponin I High Sens 22.8 H (0-20) pg/ml Total Protein 8.1 (6.0-8.3) gm/dl Albumin 4.1 (3.4-5.0) gm/dl Globulin 4.0 (2.5-4.0) gm/dl Albumin/Globulin Ratio 1.0 (0.9-2) Lipase 6 L (11-82) U/L Procalcitonin 0.10 (0-0.5) ng/ml TSH 0.833 (0.300-4.500) uIu/ml Urine Color Urine Appearance (Clear) Urine pH (4.5-7.5) Ur Specific [place] (1.000-1.030) Urine Protein (Negative) Urine Glucose (UA) (Negative) Urine Ketones (Negative) Urine Blood (Negative) Urine Nitrite (Negative) Urine Bilirubin (Negative) Urine Urobilinogen (Negative) Ur Leukocyte Esterase (Negative) Adenovirus (PCR) Not Detected (NotDetected) B. pertussis DNA (PCR) Not Detected (NotDetected) B.parapertussis DNA PCR Not Detected (NotDetected) C. pneumoniae DNA (PCR) Not Detected (NotDetected) Coronavirus OC43 (PCR) Not Detected (NotDetected) Coronavirus HKU1 (PCR) Not Detected (NotDetected) Coronavirus 229E (PCR) Not Detected (NotDetected) SARS-CoV-2 (PCR) DETECTED A* (NotDetected) Coronavirus NL63 (PCR) Not Detected (NotDetected) Human Metapneumovir PCR Not Detected (NotDetected) Influenza Type A (PCR) Not Detected (NotDetected) Influenza Type B (PCR) Not Detected (NotDetected) M. pneumoniae (PCR) Not Detected (NotDetected) Parainfluenza 1 (PCR) Not Detected (NotDetected) Parainfluenza 2 (PCR) Not Detected (NotDetected) Parainfluenza 3 (PCR) Not Detected (NotDetected) Parainfluenza 4 (PCR) Not Detected (NotDetected) RSV (PCR) Not Detected (NotDetected) Entero/Rhino (PCR) Not Detected (NotDetected) 06/25/23 06/25/23 Range/Units 14:44 15:05 WBC (4.8-10.8) K/ul RBC (4.70-6.10) M/uL Hgb (14.0-18.0) g/dl Hct (42.0-52.0) % MCV (80.0-100.0) fL MCH (25.0-34.0) pg MCHC (32.0-36.0) g/dL RDW Std Deviation (36.4-46.3) fL RDW Coeff of Yazmin (11.5-14.5) % Plt Count (130-400) K/uL MPV (9.4-12.4) fL Immature Gran % (Auto) % Neut % (Auto) % Lymph % (Auto) % [place] % (Auto) % Eos % (Auto) % Baso % (Auto) % Neut # (Auto) (1.40-6.50) K/uL Lymph # (Auto) (1.20-3.40) K/uL [place] # (Auto) (0.11-0.59) K/uL Eos # (Auto) (0.00-0.50) K/uL Baso # (Auto) (0.00-0.20) K/uL Immature Gran # (Auto) (0.01-0.20) K/uL Sodium (136-145) mmol/L Potassium (3.5-5.1) mmol/L Chloride (98-107) mmol/L Carbon Dioxide (21-32) mmol/L Anion Gap (3-11) BUN (6-23) mg/dl Creatinine (0.6-1.4) mg/dl Est Cr Clr Drug Dosing ml/min Est GFR ( Amer) ml/min Est GFR (Non-Af Amer) ml/min BUN/Creatinine Ratio (10-20) Glucose (70-99(Fasting)) mg/dl Lactate (0.4-2.0) mmol/L Calcium (8.6-10.3) mg/dl Magnesium (1.7-2.4) mg/dl Total Bilirubin (0.2-1.0) mg/dl AST (13-39) U/L ALT (7-52) U/L Alkaline Phosphatase (34-104) U/L Troponin I High Sens 12.0 D (0-20) pg/ml Total Protein (6.0-8.3) gm/dl Albumin (3.4-5.0) gm/dl Globulin (2.5-4.0) gm/dl Albumin/Globulin Ratio (0.9-2) Lipase (11-82) U/L Procalcitonin (0-0.5) ng/ml TSH (0.300-4.500) uIu/ml Urine Color Yellow Urine Appearance Clear (Clear) Urine pH 6.5 (4.5-7.5) Ur Specific [place] > 1.045 H (1.000-1.030) Urine Protein Negative (Negative) Urine Glucose (UA) Negative (Negative) Urine Ketones Negative (Negative) Urine Blood Negative (Negative) Urine Nitrite Negative (Negative) Urine Bilirubin Negative (Negative) Urine Urobilinogen Negative (Negative) Ur Leukocyte Esterase Negative (Negative) Adenovirus (PCR) (NotDetected) B. pertussis DNA (PCR) (NotDetected) B.parapertussis DNA PCR (NotDetected) C. pneumoniae DNA (PCR) (NotDetected) Coronavirus OC43 (PCR) (NotDetected) Coronavirus HKU1 (PCR) (NotDetected) Coronavirus 229E (PCR) (NotDetected) SARS-CoV-2 (PCR) (NotDetected) Coronavirus NL63 (PCR) (NotDetected) Human Metapneumovir PCR (NotDetected) Influenza Type A (PCR) (NotDetected) Influenza Type B (PCR) (NotDetected) M. pneumoniae (PCR) (NotDetected) Parainfluenza 1 (PCR) (NotDetected) Parainfluenza 2 (PCR) (NotDetected) Parainfluenza 3 (PCR) (NotDetected) Parainfluenza 4 (PCR) (NotDetected) RSV (PCR) (NotDetected) Entero/Rhino (PCR) (NotDetected) Administered Medications Discontinued Medications Albuterol (Albut/Ipratrop 3mg/0.5mg Neb 3 Ml Vial) 3 ml NEB NOW STA; Protocol Stop: 06/25/23 12:27 Last Admin: 06/25/23 12:47 Dose: 3 ml Documented By: ALBA Guaifenesin (Guaifenesin 600 Mg Tabcr) 1,200 mg PO NOW STA Stop: 06/25/23 12:27 Last Admin: 06/25/23 12:46 Dose: 1,200 mg Documented By: ALBA Sodium Chloride (Nss) 1,000 mls @ 999 mls/hr IV .Q1H1M ONE Stop: 06/25/23 12:57 Last Infusion: 06/25/23 14:11 Dose: Infused Documented By: Admin: 06/25/23 12:47 Dose: 999 mls/hr Documented By: ALBA Sodium Chloride (Nss) 1,000 mls @ 999 mls/hr IV .Q1H1M JUANITA Stop: 06/25/23 14:30 Last Infusion: 06/25/23 15:45 Dose: Infused Documented By: Admin: 06/25/23 13:14 Dose: 999 mls/hr Documented By: Infusion: 06/25/23 13:14 Dose: Infused Documented By: Admin: 06/25/23 13:00 Dose: 999 mls/hr Documented By: ALBA Acetaminophen (Ofirmev) 1,000 mg in 100 mls @ 400 mls/hr IV NOW STA Stop: 06/25/23 12:40 Last Infusion: 06/25/23 13:56 Dose: Infused Documented By: Admin: 06/25/23 12:46 Dose: 400 mls/hr Documented By: ALBA Famotidine (Pepcid 20mg Iv Push) 20 mg in 5 mls @ 2.5 mls/min IV NOW STA Stop: 06/25/23 12:27 Last Admin: 06/25/23 12:47 Dose: 2.5 mls/min Documented By: ALBA Cefepime HCl (Maxipime) 2,000 mg in 20 mls @ 5 mls/min IV NOW STA; Protocol Stop: 06/25/23 12:32 Last Admin: 06/25/23 13:38 Dose: 5 mls/min Documented By: ALBA Doxycycline Hyclate 100 mg/ (Dextrose) 100 mls @ 50 mls/hr IV NOW STA Stop: 06/25/23 14:28 Last Infusion: 06/25/23 15:45 Dose: Infused Documented By: Admin: 06/25/23 13:39 Dose: 50 mls/hr Documented By: ALBA Ioversol (Optiray 320 125ml) 115 ml IV ONCE ONE Stop: 06/25/23 13:28 Last Admin: 06/25/23 13:27 Dose: 115 ml Documented By: ALMA Methylprednisolone (Methylprednisolone 125 Mg/2 Ml Vial) 125 mg IV NOW STA Stop: 06/25/23 12:27 Last Admin: 06/25/23 12:47 Dose: 125 mg Documented By: ALBA Imaging Data Radiologist's Impression: Chest X-Ray 06/25/23 11:57 XR chest 1V portable CLINICAL HISTORY: Chest pain, nonspecific. COMPARISON STUDY: Chest CT March 03, 2017. Chest radiograph January 21, 2023. FINDINGS: Lung volumes are normal. No pneumothorax. Mild right lower lung airspace opacity has developed. There is a suspected trace right pleural effusion. No evidence for pulmonary edema. Mild cardiomegaly is unchanged. IMPRESSION: 1. Right lower lung airspace opacity which favors pneumonia. Post treatment radiographs to ensure resolution are recommended. 2. Trace right pleural effusion. ACT 112: Negative or not required by law. Electronically signed by: Chaparro Barahona M.D. 06/25/2023 12:26 PM Abdomen/Pelvis CT 06/25/23 12:26 CT OF THE ABDOMEN AND PELVIS WITH CONTRAST CLINICAL HISTORY: Nausea, fever, night sweats, history of Veronika cell carcinoma. COMPARISON STUDY: CT of the abdomen and pelvis March 03, 2017. TECHNIQUE: Following IV administration of 115 mL of Optiray, axial images of the abdomen and pelvis were obtained from the lung bases to the proximal femurs. Images were reviewed in the axial, sagittal, and coronal planes. IV contrast was administered without complication. Automated exposure control was utilized for the study. A dose lowering technique was utilized adhering to the principles of ALARA. FINDINGS: Please note that the chest CT will be reported separately. Extensive right lower lobe consolidation depicted on that exam. Right lower lobe segmental bronchi are opacified. No pneumatosis, free air or portal venous gas is present. Liver, spleen and right kidney are unremarkable. There are left-sided parapelvic cysts. There is no hydronephrosis. A 3.2 cm left adrenal nodule is similar to CT of March 03, 2017. A 7.3 cm right adrenal mass has significantly increased in size. This has multiple areas of hypervascularity. This mass previously measured 3.4 cm. No pancreatic or biliary ductal dilatation is present. There is apparent interval atrophy of the pancreatic head. No well-defined mass is identified. There is no upstream dilatation. No evidence for a bowel obstruction. The caliber and wall thickness of small and large bowel are normal. 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 Aortocaval soft tissue similar to prior exam and may reflect treated tumor. Associated extensive collateral formation is again noted. This is similar to prior exam. No pelvic lymphadenopathy is present. There are no suspicious lesions within the visualized skeletal structures. Old L2 compression fracture is present. IMPRESSION: 1. Significant increase in size of a 7.3 cm right adrenal mass since CT of March 03, 2017. This mass has multiple areas of hypervascularity. This is pathologically indeterminate but suspicious for a neoplasm. Considerations include a primary adrenal lesion such as pheochromocytoma or adrenocortical carcinoma. A collision tumor with metastasis could appear similar given history of malignancy. Oncology consultation is recommended. 2. Extensive right lower lobe airspace opacity with occluded bronchi. This favors pneumonia or aspiration pneumonitis. Imaging follow-up to ensure resolution is recommended. 3. 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 Aortocaval soft tissue is also unchanged and could represent treated tumor. 4. Interval atrophy of the pancreatic head. This is of uncertain significance however no well-defined mass is identified and there is no upstream pancreatic ductal dilatation. This should be assessed on follow-up exams. ACT 112: Negative or not required by law. Electronically signed by: Chaparro Barahona M.D. 06/25/2023 2:04 PM Chest CTA 06/25/23 12:26 CT ANGIOGRAPHY OF THE CHEST, PULMONARY EMBOLUS PROTOCOL CLINICAL HISTORY: Shortness of breath, tachycardia, sepsis. History of [place] cell carcinoma. Evaluate for pulmonary embolus. COMPARISON STUDY: Chest CT March 03, 2017. TECHNIQUE: Following IV administration of 115 mL of Optiray, helical axial images of the chest were obtained utilizing the pulmonary embolus protocol. Maximal intensity projections and sagittal and coronal reformats were viewed on an independent 3D workstation. IV contrast was administered without complication. Automated exposure control was utilized for the study. A dose lowering technique was utilized adhering to the principles of ALARA. CT DOSE: 1375.03 mGy.cm FINDINGS: No pulmonary emboli are identified. There is no thoracic aortic dissection. There is no pericardial effusion. Mild cardiomegaly is present. There is no pneumothorax or pleural effusion. Extensive airspace opacity within the right lower lobe is noted. There are tree-in-bud nodules within the right middle lobe. Extensive suspected secretions within the bronchus intermedius are noted as well as extensive secretions within the segmental bronchi of the right lower lobe and right middle lobe which are essentially occluded. Mild enlarged subcarinal lymph node measures 3 x 1.5 cm. Prominent right hilar lymph nodes are present. No suspicious lesions within the bony thorax are present. Abdomen and pelvis CT will be reported separately. A 7.3 cm mixed attenuation right adrenal mass has significantly increased in size since CT of March 03, 2017 when it measured 3.5 cm. A 2.7 cm left adrenal nodule is similar to slightly decreased in size. IMPRESSION: 1. No pulmonary emboli identified. 2. Extensive right lower lobe consolidation. This favors pneumonia or aspiration pneumonitis given extensive secretions within the bronchus intermedius and segmental bronchi which are essentially occluded. Mild tree-in-bud nodules within the right middle lobe which also likely infectious. Pulmonary consultation is recommended for consideration for bronchoscopy to exclude possibility of an endobronchial lesion. A follow-up chest CT in 2 months to ensure resolution is recommended. 3. Mildly enlarged mediastinal and right hilar lymph nodes. These nodes may be reactive however should be assessed on follow-up CT. 4. Significant increase in size of a 7.3 cm mixed attenuation right adrenal mass since CT of March 03, 2017. This is pathologically indeterminate however suspicious for a neoplasm. Considerations include a primary adrenal lesion such as a pheochromocytoma or adrenocortical carcinoma. A collision tumor with metastasis given the history of malignancy is also within the differential. ACT 112: Negative or not required by law. Electronically signed by: Chaparro Barahona M.D. 06/25/2023 1:52 PM Discharge Plan Visit Data Chief Complaint: Shortness of Breath/Dyspnea Stated Complaint: SHORTNESS OF BREATH ED Provider: Rajesh Ortega Discharge Problem: SIRS (systemic inflammatory response syndrome), Pneumonia, COVID-19, Mass of right adrenal gland Patient Disposition: Admitted As Inpatient Discharge Problem: Pneumonia Qualifiers: Pneumonia type: due to unspecified organism Laterality: right Lung location: l ower lobe of lung Qualified Code(s): J18.9 - Pneumonia, unspecified organism
[2023-06-25 12:24] LABS: Basophils # (auto) 0.04 K/uL (0.00-0.20); Basophils % (auto) 0.3 %; Hematocrit (blood only) 41.3 % (42.0-52.0); Hemoglobin 13.4 g/dl (14.0-18.0); Immature Granulocytes # (auto) 0.18 K/uL (0.01-0.20); Immature Granulocytes % (auto) 1.2 %; Lymphocytes % (auto) 5.8 %; Mean Corpuscular Hemoglobin 30.5 pg (25.0-34.0); Mean Corpuscular Hgb Conc 32.4 g/dL (32.0-36.0); Mean Corpuscular Volume 93.9 fL (80.0-100.0); Mean Platelet Volume 9.1 fL (9.4-12.4); Monocytes # (auto) 1.06 K/uL (0.11-0.59); Monocytes % (auto) 6.9 %; Neutrophils # (auto) 13.24 K/uL (1.40-6.50); Neutrophils % (auto) 85.8 %; Platelet Count 415 K/uL (130-400); White Blood Count 15.42 K/ul (4.8-10.8)
[2023-06-25] MEDS ORDERED: methylPREDNISolone 125 MG/2 ML VIAL IV STA (12:26)
[2023-06-25] MEDS ORDERED: ALBUT/IPRATROP 3MG/0.5MG NEB 3 ML VIAL NEB STA (12:26)
[2023-06-25] MEDS ORDERED: guaiFENesin 600 MG TABCR PO STA (12:26)
[2023-06-25] MEDS ORDERED: ACETAMINOPHEN 1,000 MG/100 ML VIAL IV STA (12:26)
[2023-06-25] MEDS ORDERED: FAMOTIDINE 20MG IV PUSH 20 MG/5 ML SYR IV STA (12:26)
--- NOTE | 2023-06-25 12:27 | XRay Report ---
XR chest 1V portable CLINICAL HISTORY: Chest pain, nonspecific. COMPARISON STUDY: Chest CT March 03, 2017. Chest radiograph January 21, 2023. FINDINGS: Lung volumes are normal. No pneumothorax. Mild right lower lung airspace opacity has develo ped. There is a suspected trace right pleural effusion. No evidence for pulmonary edema. Mild cardiom egaly is unchanged. IMPRESSION: 1. Right lower lung airspace opacity which favors pneumonia. Post treatment radiographs to ensure res olution are recommended. 2. Trace right pleural effusion. ACT 112: Negative or not required by law. Electronically signed by: Chaparro Barahona M.D. 06/25/2023 12:26 PM
[2023-06-25] MEDS ORDERED: CEFEPIME 2,000 MG/20 ML VIAL IV STA (12:29)
[2023-06-25] MEDS ORDERED: DOXYCYCLINE HYCLATE 100 MG in DEXTROSE 5% MINI-B 100 ML IV STA (12:29)
[2023-06-25 12:37] LABS: Albumin Level 4.1 gm/dl (3.4-5.0); Calcium 9.8 mg/dl (8.6-10.3); Est GFR (Non-African American) 70.8 ml/min; Potassium 4.3 mmol/L (3.5-5.1); Total Protein 8.1 gm/dl (6.0-8.3)
[2023-06-25 12:42] LABS: Troponin I High Sensitivity 22.8 pg/ml (0-20)
[2023-06-25 12:51] LABS: Thyroid Stimulating Hormone 0.833 uIu/ml (0.300-4.500)
[2023-06-25] MEDS: SODIUM CHLORIDE 0.9% 1,000 ML IV SCH ×2 (13:00→13:14)
[2023-06-25] MEDS ORDERED: OPTIRAY 320 125ml IV ONE (13:27)
--- NOTE | 2023-06-25 13:54 | CT Scan Report ---
CT ANGIOGRAPHY OF THE CHEST, PULMONARY EMBOLUS PROTOCOL CLINICAL HISTORY: Shortness of breath, tachycardia, sepsis. History of Veronika cell carcinoma. Evaluat e for pulmonary embolus. COMPARISON STUDY: Chest CT March 03, 2017. TECHNIQUE: Following IV administration of 115 mL of Optiray, helical axial images of the chest were o btained utilizing the pulmonary embolus protocol. Maximal intensity projections and sagittal and cor onal reformats were viewed on an independent 3D workstation. IV contrast was administered without co mplication. Automated exposure control was utilized for the study. A dose lowering technique was ut ilized adhering to the principles of ALARA. CT DOSE: 1375.03 mGy.cm FINDINGS: No pulmonary emboli are identified. There is no thoracic aortic dissection. There is no pe ricardial effusion. Mild cardiomegaly is present. There is no pneumothorax or pleural effusion. Exten sive airspace opacity within the right lower lobe is noted. There are tree-in-bud nodules within the right middle lobe. Extensive suspected secretions within the bronchus intermedius are noted as well a s extensive secretions within the segmental bronchi of the right lower lobe and right middle lobe whi ch are essentially occluded. Mild enlarged subcarinal lymph node measures 3 x 1.5 cm. Prominent right hilar lymph nodes are present. No suspicious lesions within the bony thorax are present. Abdomen and pelvis CT will be reported separately. A 7.3 cm mixed attenuation right adrenal mass has significant ly increased in size since CT of March 03, 2017 when it measured 3.5 cm. A 2.7 cm left adrenal no dule is similar to slightly decreased in size. IMPRESSION: 1. No pulmonary emboli identified. 2. Extensive right lower lobe consolidation. This favors pneumonia or aspiration pneumonitis given ex tensive secretions within the bronchus intermedius and segmental bronchi which are essentially occlud ed. Mild tree-in-bud nodules within the right middle lobe which also likely infectious. Pulmonary con sultation is recommended for consideration for bronchoscopy to exclude possibility of an endobronchia l lesion. A follow-up chest CT in 2 months to ensure resolution is recommended. 3. Mildly enlarged mediastinal and right hilar lymph nodes. These nodes may be reactive however shoul d be assessed on follow-up CT. 4. Significant increase in size of a 7.3 cm mixed attenuation right adrenal mass since CT of [facility]2016. This is pathologically indeterminate however suspicious for a neoplasm. Considerations in clude a primary adrenal lesion such as a pheochromocytoma or adrenocortical carcinoma. A collision tu mor with metastasis given the history of malignancy is also within the differential. ACT 112: Negative or not required by law. Electronically signed by: Chaparro Barahona M.D. 06/25/2023 1:52 PM
--- NOTE | 2023-06-25 14:07 | CT Scan Report ---
CT OF THE ABDOMEN AND PELVIS WITH CONTRAST CLINICAL HISTORY: Nausea, fever, night sweats, history of Veronika cell carcinoma. COMPARISON STUDY: CT of the abdomen and pelvis March 03, 2017. TECHNIQUE: Following IV administration of 115 mL of Optiray, axial images of the abdomen and pelvis w ere obtained from the lung bases to the proximal femurs. Images were reviewed in the axial, sagittal, and coronal planes. IV contrast was administered without complication. Automated exposure control w as utilized for the study. A dose lowering technique was utilized adhering to the principles of DONNA Bonds. FINDINGS: Please note that the chest CT will be reported separately. Extensive right lower lobe conso lidation depicted on that exam. Right lower lobe segmental bronchi are opacified. No pneumatosis, leonor e air or portal venous gas is present. Liver, spleen and right kidney are unremarkable. There are lef t-sided parapelvic cysts. There is no hydronephrosis. A 3.2 cm left adrenal nodule is similar to CT o f March 03, 2017. A 7.3 cm right adrenal mass has significantly increased in size. This has multi ple areas of hypervascularity. This mass previously measured 3.4 cm. No pancreatic or biliary ductal dilatation is present. There is apparent interval atrophy of the pancreatic head. No well-defined mas s is identified. There is no upstream dilatation. No evidence for a bowel obstruction. The caliber an d wall thickness of small and large bowel are normal. Chronic occlusion of the infrarenal IVC is agai n noted. Aortocaval soft tissue similar to prior exam and may reflect treated tumor. Associated exten sive collateral formation is again noted. This is similar to prior exam. No pelvic lymphadenopathy is present. There are no suspicious lesions within the visualized skeletal structures. Old L2 compressi on fracture is present. IMPRESSION: 1. Significant increase in size of a 7.3 cm right adrenal mass since CT of March 03, 2017. This m ass has multiple areas of hypervascularity. This is pathologically indeterminate but suspicious for a neoplasm. Considerations include a primary adrenal lesion such as pheochromocytoma or adrenocortical carcinoma. A collision tumor with metastasis could appear similar given history of malignancy. Oncol ogy consultation is recommended. 2. Extensive right lower lobe airspace opacity with occluded bronchi. This favors pneumonia or aspira tion pneumonitis. Imaging follow-up to ensure resolution is recommended. 3. 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 Aortocaval so ft tissue is also unchanged and could represent treated tumor. 4. Interval atrophy of the pancreatic head. This is of uncertain significance however no well-defined mass is identified and there is no upstream pancreatic ductal dilatation. This should be assessed on follow-up exams. ACT 112: Negative or not required by law. Electronically signed by: Chaparro Barahona M.D. 06/25/2023 2:04 PM
--- NOTE | 2023-06-25 14:37 | History & Physical Report ---
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 COVID Acute hypoxic respiratory failure Dyspnea on exertion Sepsis Pt tachycardic and febrile on admission WBC >15K Chest XRAY and Chest CTA noting RLL pneumonia or aspiration pneumonitis, si gnificant secretions, radiology recommending possible bronch. Recommend follow up CT imaging after discharge. Biofire COVID + Hypoxic to the 80s requiring 3L on admission, does not use oxygen at baseline Sputum Cx ordered and pending Blood Cx x 2 pending MRSA nares negative Procal of 0.1, lactate wnl at 1.2 EKG with sinus tachycardia with PACs, echo pending Received Cefepime and Doxycycline doses in the ED, IV Solumedrol 125mg Duonebs and mucinex scheduled, prn albuterol inhaler Decadron 6mg daily for COVID infection in the setting of acute hypoxic resp failure Oxygen supplementation as needed, wean as tolerated Pulmonology consult- appreciate recs, pt status immunocompromised Metastatic Veronika Cell Carcinoma Pt diagnosed in [address] Fairbanks at [facility] Has paperwork that will be placed in chart on the floor noting his history. Has been treated with cisplatin/etoposide x 5 cycles in 2014, received palliative XRT in 2015 and was started on nivolumab (Opdivo) in 2015. Currently receiving Opdivo every 10 weeks. Missed last dose on 06/21 due to having URI symptoms. Next dose due Jul 12, 2023, last dose in Mar 2023. Due to follow up with ENT in [place] for thyroid changes that PCP is concerned about. Adrenal Mass Pt with known adrenal mass Had biopsy done by IR in 2020, noting organized hemorrhage and benign adrenal cortical and medullary tissue CT abd/pelvis noting increase in size compared to 2017, however pt states that his last PET noted that the mass was unchanged. Consider Oncology follow up after further discussion with pt Hx of BPH On cialis, pt states he takes it daily to help with decreasing the size of the prostate. 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 States that he was diagnosed with the flu on [place], Was started on Tamiflu. On the , saw his oncologist and was having productive cough with chills and SOB. Was started on azithromycin and methylprednisone taper. States he completed the azithromycin and is on Day 4 of the methylprednisone taper. States this morning he used his home pulse oximeter and noted that his oxygen saturation was 88%. States that baseline is usually 97-98% at home. States that he does not use oxygen at home. Presenting with paperwork that details his cancer history. Follows with Dr. Fairbanks at [facility]. Was diagnosed in 2014 with metastatic [place] Cell Carcinoma to the retroperitoneum with unknown primary. No primary skin lesion noted, and paperwork in [facility] notes that this was an unusual presentation with unclear etiology. There is a question of whether it was related to exposure [place]. Has been treated with cisplatin/etoposide x 5 cycles in 2014, received palliative XRT in 2015 and was started on nivolumab (Opdivo) in 2016. Currently receiving Opdivo every 10 weeks. Missed last dose on Jun 21 due to having URI symptoms. Next dose due Jul 12, 2023, last dose in Mar 2023. States that there was some concern for a L thryoid nodule on his last PET scan. PCP was concerned and scheduled him for followup with ENT in [place]. Has that coming up. Has Hx of melanoma on L forearm and BCC on nose as well s/p MOHS. Hx of atrial fibrillation and Hx of DVT/PE. Allergies Allergy/AdvReac Type Severity Reaction Status Date / Time No Known Allergies Allergy Unverified 08/10/21 19:21 Home Medications Medication Instructions Recorded Confirmed Type rivaroxaban 15 mg tablet (Xarelto) 15 mg PO DAILY 08/10/21 06/25/23 History Opdivo See Rx Instructions .Route .COMPLEX 06/25/23 06/25/23 History albuterol sulfate 90 mcg/actuation See Rx Instructions .Route .COMPLEX 06/25/23 06/25/23 History aerosol inhaler methylprednisolone 4 mg tablets in 4 mg PO UD 06/25/23 06/25/23 History a dose pack Past Med/Surg History Medical History History of Veronika cell carcinoma Immunotherapy Mass of right adrenal gland Pulmonary embolism Social History Smoking Status: Never smoker Preferred Language: Greek Feels Safe at Home: Yes Review of Systems Review of Systems: All systems reviewed & are unremarkable except as noted in HPI & below Physical Exam Physical Exam: General: Alert, oriented. No acute distress Psych: Appropriate mood and affect Neuro: No gross deficits HEENT: NC/AT Chest: Nontender to palpation. CV: RRR Resp: Decreased breath sounds bilaterally, no increased effort of breathing. Abdomen: Soft, nontender, nondistended. Extremities: No edema in lower extremities bilaterally. Results & Data Results & Data Vital Signs (Past 12 Hours) Vital Signs Temp Pulse Pulse Resp BP BP Pulse Ox 06/25/23 13:56 37.4 C 06/25/23 12:45 38.4 C H 105 H 19 115/74 91 06/25/23 11:53 36.6 C 101 H 20 116/72 89 L O2 Del Method O2 Flow Rate 06/25/23 13:56 06/25/23 12:45 Nasal Cannula 3 06/25/23 11:53 Room Air Diagnostic Findings Chest X-Ray 06/25/23 11:57 XR chest 1V portable CLINICAL HISTORY: Chest pain, nonspecific. COMPARISON STUDY: Chest CT March 03, 2017. Chest radiograph January 21, 2023. FINDINGS: Lung volumes are normal. No pneumothorax. Mild right lower lung airspace opacity has developed. There is a suspected trace right pleural effusion. No evidence for pulmonary edema. Mild cardiomegaly is unchanged. IMPRESSION: 1. Right lower lung airspace opacity which favors pneumonia. Post treatment radiographs to ensure resolution are recommended. 2. Trace right pleural effusion. ACT 112: Negative or not required by law. Electronically signed by: Chaparro Barahona M.D. 06/25/2023 12:26 PM Abdomen/Pelvis CT 06/25/23 12:26 CT OF THE ABDOMEN AND PELVIS WITH CONTRAST CLINICAL HISTORY: Nausea, fever, night sweats, history of [place] cell carcinoma. COMPARISON STUDY: CT of the abdomen and pelvis March 03, 2017. TECHNIQUE: Following IV administration of 115 mL of Optiray, axial images of the abdomen and pelvis were obtained from the lung bases to the proximal femurs. Images were reviewed in the axial, sagittal, and coronal planes. IV contrast was administered without complication. Automated exposure control was utilized for the study. A dose lowering technique was utilized adhering to the principles of ALARA. FINDINGS: Please note that the chest CT will be reported separately. Extensive right lower lobe consolidation depicted on that exam. Right lower lobe segmental bronchi are opacified. No pneumatosis, free air or portal venous gas is present. Liver, spleen and right kidney are unremarkable. There are left-sided parapelvic cysts. There is no hydronephrosis. A 3.2 cm left adrenal nodule is similar to CT of March 03, 2017. A 7.3 cm right adrenal mass has significantly increased in size. This has multiple areas of hypervascularity. This mass previously measured 3.4 cm. No pancreatic or biliary ductal dilatation is present. There is apparent interval atrophy of the pancreatic head. No well-defined mass is identified. There is no upstream dilatation. No evidence for a bowel obstruction. The caliber and wall thickness of small and large bowel are normal. 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 Aortocaval soft tissue similar to prior exam and may reflect treated tumor. Associated extensive collateral formation is again noted. This is similar to prior exam. No pelvic lymphadenopathy is present. There are no suspicious lesions within the visualized skeletal structures. Old L2 compression fracture is present. IMPRESSION: 1. Significant increase in size of a 7.3 cm right adrenal mass since CT of March 03, 2017. This mass has multiple areas of hypervascularity. This is pathologically indeterminate but suspicious for a neoplasm. Considerations include a primary adrenal lesion such as pheochromocytoma or adrenocortical carcinoma. A collision tumor with metastasis could appear similar given history of malignancy. Oncology consultation is recommended. 2. Extensive right lower lobe airspace opacity with occluded bronchi. This favors pneumonia or aspiration pneumonitis. Imaging follow-up to ensure resolution is recommended. 3. 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 Aortocaval soft tissue is also unchanged and could represent treated tumor. 4. Interval atrophy of the pancreatic head. This is of uncertain significance however no well-defined mass is identified and there is no upstream pancreatic ductal dilatation. This should be assessed on follow-up exams. ACT 112: Negative or not required by law. Electronically signed by: Chaparro Barahona M.D. 06/25/2023 2:04 PM Chest CTA 06/25/23 12:26 CT ANGIOGRAPHY OF THE CHEST, PULMONARY EMBOLUS PROTOCOL CLINICAL HISTORY: Shortness of breath, tachycardia, sepsis. History of [place] cell carcinoma. Evaluate for pulmonary embolus. COMPARISON STUDY: Chest CT March 03, 2017. TECHNIQUE: Following IV administration of 115 mL of Optiray, helical axial images of the chest were obtained utilizing the pulmonary embolus protocol. Maximal intensity projections and sagittal and coronal reformats were viewed on an independent 3D workstation. IV contrast was administered without complication. Automated exposure control was utilized for the study. A dose lowering technique was utilized adhering to the principles of ALARA. CT DOSE: 1375.03 mGy.cm FINDINGS: No pulmonary emboli are identified. There is no thoracic aortic dissection. There is no pericardial effusion. Mild cardiomegaly is present. There is no pneumothorax or pleural effusion. Extensive airspace opacity within the right lower lobe is noted. There are tree-in-bud nodules within the right middle lobe. Extensive suspected secretions within the bronchus intermedius are noted as well as extensive secretions within the segmental bronchi of the right lower lobe and right middle lobe which are essentially occluded. Mild enlarged subcarinal lymph node measures 3 x 1.5 cm. Prominent right hilar lymph nodes are present. No suspicious lesions within the bony thorax are present. Abdomen and pelvis CT will be reported separately. A 7.3 cm mixed attenuation right adrenal mass has significantly increased in size since CT of March 03, 2017 when it measured 3.5 cm. A 2.7 cm left adrenal nodule is similar to slightly decreased in size. IMPRESSION: 1. No pulmonary emboli identified. 2. Extensive right lower lobe consolidation. This favors pneumonia or aspiration pneumonitis given extensive secretions within the bronchus intermedius and segmental bronchi which are essentially occluded. Mild tree-in-bud nodules within the right middle lobe which also likely infectious. Pulmonary consultation is recommended for consideration for bronchoscopy to exclude possibility of an endobronchial lesion. A follow-up chest CT in 2 months to ensure resolution is recommended. 3. Mildly enlarged mediastinal and right hilar lymph nodes. These nodes may be reactive however should be assessed on follow-up CT. 4. Significant increase in size of a 7.3 cm mixed attenuation right adrenal mass since CT of March 03, 2017. This is pathologically indeterminate however suspicious for a neoplasm. Considerations include a primary adrenal lesion such as a pheochromocytoma or adrenocortical carcinoma. A collision tumor with metastasis given the history of malignancy is also within the differential. ACT 112: Negative or not required by law. Electronically signed by: Chaparro Barahona M.D. 06/25/2023 1:52 PM Code Status & VTE Plan VTE Prophylaxis Plan VTE Prophylaxis will be ordered: Yes (3) Pneumonia Laterality: right Lung location: lower lobe of lung Pneumonia type: due to unspecified organism Qualified Code(s): J18.9 - Pneumonia, unspecified organism
[2023-06-25 15:05] LABS: Adenovirus PCR Not Detected (NotDetected); Bordetella parapertussis PCR Not Detected (NotDetected); Bordetella pertussis PCR Not Detected (NotDetected); Chlamydia pneumoniae PCR Not Detected (NotDetected); Coronavirus 229E PCR Not Detected (NotDetected); Coronavirus HKU1 PCR Not Detected (NotDetected); Coronavirus NL63 PCR Not Detected (NotDetected); Coronavirus OC43PCR Not Detected (NotDetected); Human Metapneumovirus PCR Not Detected (NotDetected); Influenza A PCR Not Detected (NotDetected); Influenza B PCR Not Detected (NotDetected); Mycoplasma pneumoniae PCR Not Detected (NotDetected); Parainfluenza Virus 1 PCR Not Detected (NotDetected); Parainfluenza Virus 2 PCR Not Detected (NotDetected); Parainfluenza Virus 3 PCR Not Detected (NotDetected); Parainfluenza Virus 4 PCR Not Detected (NotDetected); Respiratory Syncytial VirusPCR Not Detected (NotDetected); Rhinovirus/Enterovirus PCR Not Detected (NotDetected)
[2023-06-25 15:16] LABS: Coronavirus CoV-2 (COVID19)PCR DETECTED (NotDetected)
[2023-06-25 15:20] LABS: Appearance Urine Clear (Clear); Bilirubin Urine Negative (Negative); Blood Urine Negative (Negative); Color Urine Yellow; Glucose Urine UA Negative (Negative); Ketones Urine Negative (Negative); Leukocyte Esterase Urine Negative (Negative); Nitrite Urine Negative (Negative); Protein Urine Negative (Negative); Specific Gravity Urine > 1.045 (1.000-1.030); Urobilinogen Urine Negative (Negative); pH Urine 6.5 (4.5-7.5)
[2023-06-25] MEDS ORDERED: ONDANSETRON INJ 2 MG/ML 2 ML VIAL IV PRN (19:06)
[2023-06-25] MEDS ORDERED: ACETAMINOPHEN 500 MG TAB PO PRN (19:06)
[2023-06-25] MEDS ORDERED: ALBUTEROL HFA 8 GM INHALER INH PRN (19:14)
[2023-06-25] MEDS ORDERED: ALBUTEROL HFA 8 GM INHALER INH SCH ×2 (19:15)
[2023-06-25] MEDS ORDERED: PIPER/TAZO 4.5g in D5W MINI-B 100 ML IV ONE (19:30)
[2023-06-25] MEDS: guaiFENesin 600 MG TABCR PO SCH (21:43)
[2023-06-25] MEDS: ALBUT/IPRATROP 3MG/0.5MG NEB 3 ML VIAL NEB SCH (23:30)
[2023-06-25] MEDS: DOXYCYCLINE HYCLATE 100 MG in DEXTROSE 5% MINI-B 100 ML IV SCH (23:39)
[2023-06-26] MEDS: PIPERACILLIN/TAZOBACTAM 4.5 GM in DEXTROSE 5% MINI-B 100 ML IV SCH ×3 (01:52→18:27)
[2023-06-26] MEDS: ALBUT/IPRATROP 3MG/0.5MG NEB 3 ML VIAL NEB SCH ×6 (02:41→22:53)
[2023-06-26 03:42] LABS: Hematocrit (blood only) 38.5 % (42.0-52.0); Hemoglobin 12.3 g/dl (14.0-18.0); Mean Corpuscular Hemoglobin 30.4 pg (25.0-34.0); Mean Corpuscular Hgb Conc 31.9 g/dL (32.0-36.0); Mean Corpuscular Volume 95.3 fL (80.0-100.0); Mean Platelet Volume 9.2 fL (9.4-12.4); Platelet Count 364 K/uL (130-400); Red Blood Count 4.04 M/uL (4.70-6.10); White Blood Count 11.28 K/ul (4.8-10.8)
[2023-06-26 04:08] LABS: Albumin Level 3.6 gm/dl (3.4-5.0); BUN Creatinine Ratio 23.7 (10-20); Bilirubin,Total 0.5 mg/dl (0.2-1.0); Calcium 9.2 mg/dl (8.6-10.3); Creatinine Clr Calc Pharmacy 76.3 ml/min; Est GFR (African American) 96.1 ml/min; Est GFR (Non-African American) 82.9 ml/min; Globulin 3.5 gm/dl (2.5-4.0); Magnesium 2.2 mg/dl (1.7-2.4); Phosphorus 2.3 mg/dl (2.5-4.9); Potassium 3.7 mmol/L (3.5-5.1); Total Protein 7.1 gm/dl (6.0-8.3)
[2023-06-26 04:10] LABS: Basophils # (auto) 0.02 K/uL (0.00-0.20); Basophils % (auto) 0.2 %; Echinocytes 1+; Immature Granulocytes # (auto) 0.08 K/uL (0.01-0.20); Immature Granulocytes % (auto) 0.7 %; Lymphocytes # (auto) 0.54 K/uL (1.20-3.40); Lymphocytes % (auto) 4.8 %; Monocytes # (auto) 0.28 K/uL (0.11-0.59); Monocytes % (auto) 2.5 %; Neutrophils # (auto) 10.36 K/uL (1.40-6.50); Neutrophils % (auto) 91.8 %
--- NOTE | 2023-06-26 08:39 | Hospitalist Progress Note ---
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 COVID Acute hypoxic respiratory failure Dyspnea on exertion Sepsis Pt tachycardic and febrile on admission WBC >15K Chest XRAY and Chest CTA noting RLL pneumonia or aspiration pneumonitis, s ignificant secretions, radiology recommending possible bronch. Recommend follow up CT imaging after discharge. Biofire COVID + Hypoxic to the 80s requiring 3L on admission, does not use oxygen at baseline Sputum Cx ordered and pending Blood Cx x 2 pending MRSA nares negative Procal of 0.1, lactate wnl at 1.2 EKG with sinus tachycardia with PACs, echo pending Received Cefepime and Doxycycline doses in the ED, IV Solumedrol 125mg Duonebs and mucinex scheduled, prn albuterol inhaler Decadron 6mg daily for COVID infection in the setting of acute hypoxic resp failure Oxygen supplementation as needed, wean as tolerated Pulmonology consult- appreciate recs, pt status immunocompromised 06/26 Currently pt is on RA and feeling better Seen by plumonary med. - Cont. zosyn + doxy, can stop steroid. May be possibly dc'ed if cont. to improve on PO abx - augmentin and doxy. Cont. w/ hypertonic saline, percussion vest for now Metastatic Veronika Cell Carcinoma Pt diagnosed in [address] Fairbanks at [facility] Has paperwork that will be placed in chart on the floor noting his history. Has been treated with cisplatin/etoposide x 5 cycles in 2014, received palliative XRT in 2016 and was started on nivolumab (Opdivo) in 2016. Currently receiving Opdivo every 10 weeks. Missed last dose on 06/21 due to having URI symptoms. Next dose due Jul 12, 2023, last dose in Mar 2023. Due to follow up with ENT in [place] for thyroid changes that PCP is concerned about. Adrenal Mass Pt with known adrenal mass Had biopsy done by IR in 2020, noting organized hemorrhage and benign adrenal cortical and medullary tissue CT abd/pelvis noting increase in size compared to 2017, however pt states that his last PET noted that the mass was unchanged. Consider Oncology follow up after further discussion with pt Hx of BPH On cialis, pt states he takes it daily to help with decreasing the size of the prostate. 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 no abd. pain, n/v pulmonary medicine consulted Review of Systems Review of Systems: All systems reviewed & are unremarkable except as noted in Subjective Physical Exam Physical Exam: General: Alert, oriented. No acute distress Psych: Appropriate mood and affect Neuro: No gross deficits HEENT: NC/AT Chest: Nontender to palpation. CV: RRR Resp: Decreased breath sounds at R base otherwise CTA, no increased effort of breathing. Abdomen: Soft, nontender, nondistended. Extremities: trace LE edema bilaterally. Results & Data Results & Data Vital Signs (Past 12 Hours) Vital Signs Temp Pulse Pulse Resp BP BP Pulse Ox 06/26/23 07:58 72 06/26/23 07:44 66 16 96 06/26/23 06:00 70 17 92/60 L 95 06/26/23 03:00 76 18 118/72 94 06/26/23 02:41 64 18 93 06/26/23 00:20 69 17 91 06/26/23 00:10 70 16 91 06/26/23 00:00 73 12 91 06/25/23 23:50 73 16 92 06/25/23 23:48 73 06/25/23 23:40 70 16 93 06/25/23 23:31 65 18 93 06/25/23 23:30 63 16 93 06/25/23 23:20 63 18 92 06/25/23 23:10 65 18 91 06/25/23 23:00 68 21 94 06/25/23 22:53 70 22 06/25/23 22:30 70 18 95 06/25/23 22:20 63 18 92 06/25/23 22:10 63 16 92 06/25/23 22:00 64 17 93 06/25/23 21:50 64 16 93 06/25/23 21:40 64 16 91 06/25/23 21:30 64 19 92 06/25/23 21:23 06/25/23 21:20 65 19 95 06/25/23 21:18 67 18 94 06/25/23 21:18 91/64 L 06/25/23 21:18 36.8 C 67 19 91/64 L 94 06/25/23 21:10 65 17 93 06/25/23 21:00 65 18 93 06/25/23 20:50 65 16 93 06/25/23 20:40 68 15 94 O2 Del Method 06/26/23 07:58 06/26/23 07:44 Room Air 06/26/23 06:00 Room Air 06/26/23 03:00 Room Air 06/26/23 02:41 Room Air 06/26/23 00:20 06/26/23 00:10 06/26/23 00:00 06/25/23 23:50 06/25/23 23:48 06/25/23 23:40 06/25/23 23:31 Room Air 06/25/23 23:30 06/25/23 23:20 06/25/23 23:10 06/25/23 23:00 06/25/23 22:53 06/25/23 22:30 06/25/23 22:20 06/25/23 22:10 06/25/23 22:00 06/25/23 21:50 06/25/23 21:40 06/25/23 21:30 06/25/23 21:23 Room Air 06/25/23 21:20 06/25/23 21:18 06/25/23 21:18 06/25/23 21:18 Room Air 06/25/23 21:10 06/25/23 21:00 06/25/23 20:50 06/25/23 20:40 Laboratory Results 06/26/23 06/25/23 06/25/23 Range/Units 03:17 15:05 14:44 WBC 11.28 H (4.8-10.8) K/ul RBC 4.04 L (4.70-6.10) M/uL Hgb 12.3 L (14.0-18.0) g/dl Hct 38.5 L (42.0-52.0) % MCV 95.3 (80.0-100.0) fL MCH 30.4 (25.0-34.0) pg MCHC 31.9 L (32.0-36.0) g/dL RDW Std Deviation 46.0 (36.4-46.3) fL RDW Coeff of Yazmin 13.0 (11.5-14.5) % Plt Count 364 (130-400) K/uL MPV 9.2 L (9.4-12.4) fL Immature Gran % (Auto) 0.7 % Neut % (Auto) 91.8 % Lymph % (Auto) 4.8 % Merrick % (Auto) 2.5 % Eos % (Auto) 0.0 % Baso % (Auto) 0.2 % Neut # (Auto) 10.36 H (1.40-6.50) K/uL Lymph # (Auto) 0.54 L (1.20-3.40) K/uL Merrick # (Auto) 0.28 (0.11-0.59) K/uL Eos # (Auto) 0.00 (0.00-0.50) K/uL Baso # (Auto) 0.02 (0.00-0.20) K/uL Immature Gran # (Auto) 0.08 (0.01-0.20) K/uL Echinocytes 1+ Sodium 137 (136-145) mmol/L Potassium 3.7 (3.5-5.1) mmol/L Chloride 103 (98-107) mmol/L Carbon Dioxide 24 (21-32) mmol/L Anion Gap 10 (3-11) BUN 22 (6-23) mg/dl Creatinine 0.93 (0.6-1.4) mg/dl Est Cr Clr Drug Dosing 76.3 ml/min Est GFR ( Amer) 96.1 ml/min Est GFR (Non-Af Amer) 82.9 ml/min BUN/Creatinine Ratio 23.7 H (10-20) Glucose 208 H (70-99(Fasting)) mg/dl Lactate (0.4-2.0) mmol/L Calcium 9.2 (8.6-10.3) mg/dl Phosphorus 2.3 L (2.5-4.9) mg/dl Magnesium 2.2 (1.7-2.4) mg/dl Total Bilirubin 0.5 D (0.2-1.0) mg/dl AST 10 L (13-39) U/L ALT 10 (7-52) U/L Alkaline Phosphatase 79 (34-104) U/L Troponin I High Sens 12.0 D (0-20) pg/ml Total Protein 7.1 (6.0-8.3) gm/dl Albumin 3.6 (3.4-5.0) gm/dl Globulin 3.5 (2.5-4.0) gm/dl Albumin/Globulin Ratio 1.0 (0.9-2) Lipase (11-82) U/L Procalcitonin (0-0.5) ng/ml TSH (0.300-4.500) uIu/ml Urine Color Yellow Urine Appearance Clear (Clear) Urine pH 6.5 (4.5-7.5) Ur Specific [place] > 1.045 H (1.000-1.030) Urine Protein Negative (Negative) Urine Glucose (UA) Negative (Negative) Urine Ketones Negative (Negative) Urine Blood Negative (Negative) Urine Nitrite Negative (Negative) Urine Bilirubin Negative (Negative) Urine Urobilinogen Negative (Negative) Ur Leukocyte Esterase Negative (Negative) Nasal Screen MRSA (PCR) Negative (Negative) Adenovirus (PCR) (NotDetected) B. pertussis DNA (PCR) (NotDetected) B.parapertussis DNA PCR (NotDetected) C. pneumoniae DNA (PCR) (NotDetected) Coronavirus OC43 (PCR) (NotDetected) Coronavirus HKU1 (PCR) (NotDetected) Coronavirus 229E (PCR) (NotDetected) SARS-CoV-2 (PCR) (NotDetected) Coronavirus NL63 (PCR) (NotDetected) Human Metapneumovir PCR (NotDetected) Influenza Type A (PCR) (NotDetected) Influenza Type B (PCR) (NotDetected) M. pneumoniae (PCR) (NotDetected) Parainfluenza 1 (PCR) (NotDetected) Parainfluenza 2 (PCR) (NotDetected) Parainfluenza 3 (PCR) (NotDetected) Parainfluenza 4 (PCR) (NotDetected) RSV (PCR) (NotDetected) Entero/Rhino (PCR) (NotDetected) 06/25/23 06/25/23 06/25/23 Range/Units 13:51 12:47 12:05 WBC 15.42 H (4.8-10.8) K/ul RBC 4.40 L (4.70-6.10) M/uL Hgb 13.4 L (14.0-18.0) g/dl Hct 41.3 L (42.0-52.0) % MCV 93.9 (80.0-100.0) fL MCH 30.5 (25.0-34.0) pg MCHC 32.4 (32.0-36.0) g/dL RDW Std Deviation 45.0 (36.4-46.3) fL RDW Coeff of Yazmin 13.0 (11.5-14.5) % Plt Count 415 H (130-400) K/uL MPV 9.1 L (9.4-12.4) fL Immature Gran % (Auto) 1.2 % Neut % (Auto) 85.8 % Lymph % (Auto) 5.8 % Merrick % (Auto) 6.9 % Eos % (Auto) 0.0 % Baso % (Auto) 0.3 % Neut # (Auto) 13.24 H (1.40-6.50) K/uL Lymph # (Auto) 0.90 L (1.20-3.40) K/uL Merrick # (Auto) 1.06 H (0.11-0.59) K/uL Eos # (Auto) 0.00 (0.00-0.50) K/uL Baso # (Auto) 0.04 (0.00-0.20) K/uL Immature Gran # (Auto) 0.18 (0.01-0.20) K/uL Echinocytes Sodium 135 L (136-145) mmol/L Potassium 4.3 (3.5-5.1) mmol/L Chloride 98 (98-107) mmol/L Carbon Dioxide 27 (21-32) mmol/L Anion Gap 10 (3-11) BUN 17 (6-23) mg/dl Creatinine 1.06 (0.6-1.4) mg/dl Est Cr Clr Drug Dosing 67.0 ml/min Est GFR ( Amer) 82.0 ml/min Est GFR (Non-Af Amer) 70.8 ml/min BUN/Creatinine Ratio 16.0 (10-20) Glucose 116 H (70-99(Fasting)) mg/dl Lactate 1.2 (0.4-2.0) mmol/L Calcium 9.8 (8.6-10.3) mg/dl Phosphorus (2.5-4.9) mg/dl Magnesium 2.0 (1.7-2.4) mg/dl Total Bilirubin 1.0 (0.2-1.0) mg/dl AST 13 (13-39) U/L ALT 13 (7-52) U/L Alkaline Phosphatase 91 (34-104) U/L Troponin I High Sens 22.8 H (0-20) pg/ml Total Protein 8.1 (6.0-8.3) gm/dl Albumin 4.1 (3.4-5.0) gm/dl Globulin 4.0 (2.5-4.0) gm/dl Albumin/Globulin Ratio 1.0 (0.9-2) Lipase 6 L (11-82) U/L Procalcitonin 0.10 (0-0.5) ng/ml TSH 0.833 (0.300-4.500) uIu/ml Urine Color Urine Appearance (Clear) Urine pH (4.5-7.5) Ur Specific [place] (1.000-1.030) Urine Protein (Negative) Urine Glucose (UA) (Negative) Urine Ketones (Negative) Urine Blood (Negative) Urine Nitrite (Negative) Urine Bilirubin (Negative) Urine Urobilinogen (Negative) Ur Leukocyte Esterase (Negative) Nasal Screen MRSA (PCR) (Negative) Adenovirus (PCR) Not Detected (NotDetected) B. pertussis DNA (PCR) Not Detected (NotDetected) B.parapertussis DNA PCR Not Detected (NotDetected) C. pneumoniae DNA (PCR) Not Detected (NotDetected) Coronavirus OC43 (PCR) Not Detected (NotDetected) Coronavirus HKU1 (PCR) Not Detected (NotDetected) Coronavirus 229E (PCR) Not Detected (NotDetected) SARS-CoV-2 (PCR) DETECTED A* (NotDetected) Coronavirus NL63 (PCR) Not Detected (NotDetected) Human Metapneumovir PCR Not Detected (NotDetected) Influenza Type A (PCR) Not Detected (NotDetected) Influenza Type B (PCR) Not Detected (NotDetected) M. pneumoniae (PCR) Not Detected (NotDetected) Parainfluenza 1 (PCR) Not Detected (NotDetected) Parainfluenza 2 (PCR) Not Detected (NotDetected) Parainfluenza 3 (PCR) Not Detected (NotDetected) Parainfluenza 4 (PCR) Not Detected (NotDetected) RSV (PCR) Not Detected (NotDetected) Entero/Rhino (PCR) Not Detected (NotDetected) Medications Administered Current Inpatient Medications Acetaminophen (Acetaminophen 500 Mg Tab) 1,000 mg PO Q8H PRN PRN Reason: Pain or Fever Stop: 07/25/23 19:05 Albuterol (Albut/Ipratrop 3mg/0.5mg Neb 3 Ml Vial) 3 ml NEB Q4R JUANITA; Protocol Stop: 07/25/23 22:59 Last Admin: 06/26/23 07:44 Dose: 3 ml Albuterol (Albuterol Hfa 8 Gm Inhaler) 2 puffs INH Q6H PRN PRN Reason: Shortness Of Breath Or Wheezing Stop: 07/25/23 19:14 Guaifenesin (Guaifenesin 600 Mg Tabcr) 1,200 mg PO Q12 JUANITA Stop: 07/25/23 20:59 Last Admin: 06/25/23 21:43 Dose: 1,200 mg Piperacillin Sod/Tazobactam (Sod 4.5 gm/ Dextrose) 100 mls @ 25 mls/hr IV Q8H JUANITA; Protocol Stop: 07/03/23 01:59 Last Infusion: 06/26/23 06:07 Dose: Infused Doxycycline Hyclate 100 mg/ (Dextrose) 100 mls @ 50 mls/hr IV Q12H [facility] Stop: 07/03/23 00:00 Last Infusion: 06/26/23 01:44 Dose: Infused Dexamethasone 6 mg/ Syringe 1.5 mls @ 1 mls/min IV Q24H [facility] Stop: 07/26/23 08:59 Miscellaneous (Tadalafil 5 Mg- Order Awaiting Action) 1 each N/A QS [facility] Stop: 07/26/23 00:00 Last Admin: 06/26/23 00:29 Dose: Not Given Ondansetron HCl (Ondansetron Inj 2 Mg/Ml 2 Ml Vial) 4 mg IV Q6H PRN PRN Reason: Nausea And Vomiting Stop: 07/25/23 19:05 Rivaroxaban (Rivaroxaban 15 Mg Tab) 15 mg PO QDB [facility] Stop: 07/26/23 07:29 (3) Pneumonia Laterality: right Lung location: lower lobe of lung Pneumonia type: due to unspecified organism Qualified Code(s): J18.9 - Pneumonia, unspecified organism
[2023-06-26] MEDS: RIVAROXABAN 15 MG TAB PO SCH (08:58)
[2023-06-26] MEDS: guaiFENesin 600 MG TABCR PO SCH ×2 (08:58→20:15)
[2023-06-26] MEDS ORDERED: dexAMETHasone 6 MG in SYRINGE 0 ML IV SCH (09:00)
[2023-06-26] MEDS ORDERED: SODIUM CHLOR 7% 4 ML NEB NEB STA (12:26)
--- NOTE | 2023-06-26 12:27 | Pulmonary Consultation ---
Date of Consultation June 26, 2023 Assessment & Plan (1) Right lower lobe pneumonia: Pneumonia type: due to unspecified organism Qualified Code(s): J18.9 - Pneumonia, unspecified organism (2) COVID-19: Plan 68-year-old male with a history of Veronika cell carcinoma on Opdivo since 2017 presenting to the hospital due to right lower lobe pneumonia. He was also found to have COVID-19 on the [employer] PCR testing. Continue Zosyn and doxycycline for today. MRSA screen was negative on admission. Anticipate the patient can likely be discharged home tomorrow on Augmentin and doxycycline for 7 days. Recommend follow-up CT scan in 8 to 10 weeks to follow-up on the right lower lobe infiltrate and secretions noted in the bronchus intermedius. If symptoms worsen overnight, the patient will likely need bronchoscopy to further evaluate the airways. Will initiate airway clearance therapies with hypertonic saline and percussive vest therapy Dexamethasone at this point is of unclear utility. I suspect his acute illness is due to bacterial pneumonia as opposed to viral pneumonia. Additionally, it should be noted the patient is on Opdivo which can cause pneumonitis, but this is typically more of a diffuse picture. I do not think his current diagnosis compatible with COVID-19 viral pneumonia or immune checkpoint inhibitor pneumonitis. Thank you for the consult. Will follow. History of Present Illness Reason for Consultation: Right lower lobe pneumonia with inspissated mucus Attending Physician: Dom Eason MD History of Present Illness 68-year-old male with a past medical history of DVT, Veronika cell carcinoma and mass of the right adrenal gland who presented to the hospital yesterday due to shortness of breath and hypoxia. Patient notes that around he had flulike illness which briefly got better and then more recently over the past 2 or 3 days he has been having more shortness of breath with cough. He notes that his cough is occasionally productive, but he mostly brings up clear sputum. In the ER he was found to be hypoxic with saturations in the mid to high 80s and he was placed on supplemental oxygen. His hypoxemia has improved and he is currently saturating well on room air. He denies any chest pain. Denies any fevers. He still has a cough that has become dry at this point. He had a chest CTA 06/25/2023 which revealed mildly enlarged mediastinal and right hilar lymph nodes. There is also extensive consolidation in the right lower lobe with secretions noted in the bronchus intermedius he was found to be COVID-19 positive on admission. He is currently on Zosyn and doxycycline. He is also on dexamethasone at a dose of 6 mg daily. He denies any history of prior tobacco abuse. He denies any vaping or e- cigarettes. 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 Allergies Allergy/AdvReac Type Severity Reaction Status Date / Time No Known Allergies Allergy Unverified 08/10/21 19:21 Home Medications Medication Instructions Recorded Confirmed Type rivaroxaban 15 mg tablet (Xarelto) 15 mg PO DAILY 08/10/21 06/25/23 History Opdivo See Rx Instructions .Route .COMPLEX 06/25/23 06/25/23 History albuterol sulfate 90 mcg/actuation See Rx Instructions .Route .COMPLEX 06/25/23 06/25/23 History aerosol inhaler methylprednisolone 4 mg tablets in 4 mg PO UD 06/25/23 06/25/23 History a dose pack Patient History Medical History (Updated 06/26/23 @ 12:22 by Titi Ellis MD) Right lower lobe pneumonia History of Veronika cell carcinoma Immunotherapy Mass of right adrenal gland Pulmonary embolism Social History Smoking Status: Never smoker Hx Alcohol Use: No Hx Substance Use: No Preferred Language: Portuguese Communication Ability: Effective Principal Software Architect Required: No Beliefs That Will Affect Care: None Current Living Situation: Spouse Feels Safe at Home: Yes Safety Concerns: Feels Safe At This Time Assistive Devices: None Review of Systems Review of Systems: All systems reviewed & are unremarkable except as noted in HPI & below Physical Exam Physical Exam: Constitutional: Patient appears to be of their stated age. Patient is in no apparent distress. Patient is well-developed. Eyes: Pupils are equal round and reactive to light. Conjunctivae are normal. Anicteric sclera. Ears nose, mouth and throat: Mallampati class 2. Normal posterior oropharynx. Uvula is midline. Neck: Trachea is midline. Visual inspection is normal. Respiratory: Crackles noted in the right lower lobe. No significant tachypnea. No increased work of breathing. Cardiovascular: Regular rate and rhythm. No murmurs. No edema. Gastrointestinal: Normal bowel sounds, soft, nontender and nondistended. No hepatosplenomegaly noted. Musculoskeletal: No cyanosis. Patient is able to move all extremities. Strength is 5 out of 5 in the upper and lower extremities. Skin: No rashes, warm dry and intact. Neurologic: No obvious focal neurological deficits seen. Psychiatric: Alert and oriented x3 with a euthymic affect. Results & Data Results & Data Vital Signs (Past 12 Hours) Vital Signs Pulse Pulse Resp BP BP Pulse Ox O2 Del Method 06/26/23 11:10 73 13 100 06/26/23 11:04 69 18 96 Room Air 06/26/23 11:00 90 15 65 L 06/26/23 10:50 67 14 95 06/26/23 10:40 76 15 82 L 06/26/23 10:30 68 17 97 06/26/23 10:20 70 19 95 06/26/23 10:10 70 18 95 06/26/23 10:00 73 20 96 06/26/23 09:50 70 15 96 06/26/23 09:47 113/71 06/26/23 09:47 69 16 94 06/26/23 09:40 76 18 06/26/23 09:30 73 16 06/26/23 09:23 79 21 06/26/23 09:00 71 20 93 06/26/23 08:50 75 16 93 06/26/23 08:40 67 17 93 06/26/23 08:30 67 17 93 06/26/23 08:20 68 16 93 06/26/23 08:10 70 14 92 06/26/23 08:00 69 17 91 06/26/23 07:58 72 06/26/23 07:50 68 9 L 97 06/26/23 07:44 66 16 96 Room Air 06/26/23 07:40 61 15 93 06/26/23 07:30 61 16 93 06/26/23 07:20 62 14 93 06/26/23 07:10 64 19 93 06/26/23 07:00 64 16 93 06/26/23 06:00 70 17 92/60 L 95 Room Air 06/26/23 03:00 76 18 118/72 94 Room Air 06/26/23 02:41 64 18 93 Room Air 06/26/23 00:20 69 17 91 PG Care Time/CCT Total # of Minutes Spent Total Time Spent with Patient: Total time spent is greater than 50% in coordination of care (as documented) at patient's floor/unit and/or counseling patient: Coding Level of Care Code 67903 INT INP/OBS CARE MIN Diagnoses Pneumonia of right lower lobe due to infectious organism J18.9 Pneumonia type: due to unspecified organism COVID-19 U07.1
[2023-06-26] MEDS: DOXYCYCLINE HYCLATE 100 MG in DEXTROSE 5% MINI-B 100 ML IV SCH ×2 (13:15→23:40)
[2023-06-26] MEDS: SODIUM CHLOR 7% 4 ML NEB NEB SCH (20:28)
[2023-06-27] MEDS: PIPERACILLIN/TAZOBACTAM 4.5 GM in DEXTROSE 5% MINI-B 100 ML IV SCH ×2 (01:59→10:39)
[2023-06-27] MEDS: ALBUT/IPRATROP 3MG/0.5MG NEB 3 ML VIAL NEB SCH ×4 (02:12→15:56)
[2023-06-27] MEDS: SODIUM CHLOR 7% 4 ML NEB NEB SCH (07:21)
[2023-06-27 07:25] LABS: Hematocrit (blood only) 34.5 % (42.0-52.0); Hemoglobin 11.7 g/dl (14.0-18.0); Mean Corpuscular Hemoglobin 30.9 pg (25.0-34.0); Mean Corpuscular Hgb Conc 33.9 g/dL (32.0-36.0); Mean Platelet Volume 9.3 fL (9.4-12.4); Platelet Count 408 K/uL (130-400); RDW Coefficient of Variation 12.9 % (11.5-14.5); RDW Standard Deviation 43.2 fL (36.4-46.3); Red Blood Count 3.79 M/uL (4.70-6.10); White Blood Count 13.44 K/ul (4.8-10.8)
[2023-06-27 07:45] LABS: BUN Creatinine Ratio 20.7 (10-20); Calcium 8.8 mg/dl (8.6-10.3); Creatinine Clr Calc Pharmacy 77.1 ml/min; Est GFR (African American) 97.3 ml/min; Phosphorus 2.6 mg/dl (2.5-4.9); Potassium 3.7 mmol/L (3.5-5.1)
[2023-06-27] MEDS: RIVAROXABAN 15 MG TAB PO SCH (07:45)
--- NOTE | 2023-06-27 08:14 | Electrocardiogram Report ---
Test Reason : Blood Pressure : / mmHG Vent. Rate : 101 BPM Atrial Rate : 101 BPM P-R Int : 154 ms QRS Dur : 098 ms QT Int : 344 ms P-R-T Axes : 072 -78 070 degrees QTc Int : 446 ms Poor data quality, interpretation may be adversely affected Sinus tachycardia with Premature atrial complexes Left anterior fascicular block Abnormal ECG When compared with ECG of 21-JAN-2023 19:56, Premature atrial complexes are now Present Vent. rate has increased BY 36 BPM Artifact now present Confirmed by Polo Us ([id number]) on 06/27/2023 8:13:52 AM Referred By: Confirmed By:Polo Us
[2023-06-27] MEDS: guaiFENesin 600 MG TABCR PO SCH (10:39)
--- NOTE | 2023-06-27 13:30 | Pulmonology Progress Note ---
Date of Service June 27, 2023 Assessment & Plan (1) Right lower lobe pneumonia: Pneumonia type: due to Pneumococcus Qualified Code(s): J13 - Pneumonia due to Streptococcus pneumoniae (2) COVID-19: Plan Impression: 68-year-old male with a history of [place] cell carcinoma on Opdivo since 2017 now with pneumococcal pneumonia. Recommendations: 1. Pneumococcal pneumonia: De-escalate antibiotics. Will transition from Zosyn and doxycycline to oral amoxicillin for an total of 7 days. Agree with plans for follow-up CT scan in 8 to 10 weeks. Patient can follow-up with Dr. Ellis in the outpatient setting. 2. COVID. Incidentally found. No indication for dexamethasone or antiviral therapies at this point in time. 3. Mucous plugging: Suspect this will improve spontaneously. No indication for continued outpatient hypertonic saline or percussive therapies. The patient is quite active and with treatment for the infection that should resolve over time. Follow-up imaging with outpatient pulmonary as noted above. The patient appears to have achieved optimal benefit from inpatient stay and is appropriate to dismiss from the hospital from a pulmonary perspective. Pulmonary will sign off. Feel free to contact us with questions or concerns Admission and Anticipated Discharge Date Admission Date: June 25, 2023 Subjective Patient seen and examined. MR del valle Discussed with off going machine feeder floorperson. Patient reports that he is doing well clinically. He is not on oxygen. He is not experiencing any shortness of breath. His cough is minimally productive. He is able to ambulate around the room without difficulty. He denies fevers chills night sweats or other constitutional symptoms. Review of Systems 2 Review of Systems: All systems reviewed & are unremarkable except as noted in Subjective Physical Exam 2 Constitutional: WD/WN, vitals as above Neck: trachea midline, no thyromegaly Respiratory: normal respiratory effort, lungs clear to auscultation Cardiovascular: RRR, no murmur, no edema Gastrointestinal (Abdomen): normal bowel sounds, soft, nontender, no hepatosplenomegaly Musculoskeletal: Extremities: extremities normal to inspection Skin: no rashes, warm and dry Neurologic: Nonfocal exam Lymphatic: no cervical lymphadenopathy Results & Data Results & Data Vital Signs (Past 12 Hours) Vital Signs Temp Pulse Resp BP Pulse Ox O2 Del Method FiO2 06/27/23 11:42 86 20 92/72 L 94 Room Air 06/27/23 11:15 76 15 96 Room Air 21 06/27/23 07:53 36.5 C 81 16 106/64 95 Room Air 06/27/23 07:22 76 18 92 Room Air 06/27/23 02:12 75 18 94 Room Air Laboratory Results 06/27/23 06:42 06/27/23 06:42 Sputum culture with Streptococcus pneumoniae Diagnostic Findings No new imaging PG Care Time/CCT Total # of Minutes Spent Total Time Spent with Patient: Total time spent is greater than 50% in coordination of care (as documented) at patient's floor/unit and/or counseling patient: Coding Level of Care Code 21054 SUB INP/OBS CARE 2/35MIN Diagnoses Pneumonia of right lower lobe due to Streptococcus pneumoniae J13 Pneumonia type: due to Pneumococcus COVID-19 U07.1
[2023-06-27] MEDS: DOXYCYCLINE HYCLATE 100 MG in DEXTROSE 5% MINI-B 100 ML IV SCH (13:49)
[2023-06-27] MEDS ORDERED: AMOXICILLIN 500 MG CAP PO SCH (14:00)
--- NOTE | 2023-06-27 14:37 | Discharge Summary ---
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 States that he was diagnosed with the flu on [place], Was started on Tamiflu. On the , saw his oncologist and was having productive cough with chills and SOB. Was started on azithromycin and methylprednisone taper. States he completed the azithromycin and is on Day 4 of the methylprednisone taper. States this morning he used his home pulse oximeter and noted that his oxygen saturation was 88%. States that baseline is usually 97-98% at home. States that he does not use oxygen at home. Presenting with paperwork that details his cancer history. Follows with Dr. Fairbanks at [facility]. 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 No primary skin lesion noted, and paperwork in [facility] notes that this was an unusual presentation with unclear e tiology. There is a question of whether it was related to exposure while [place]. Has been treated with cisplatin/etoposide x 5 cycles in 2014, received palliative XRT in 2016 and was started on nivolumab (Opdivo) in 2016. Currently receiving Opdivo every 10 weeks. Missed last dose on Jun 21 due to having URI symptoms. Next dose due Jul 12, 2023, last dose in Mar 2023. States that there was some concern for a L thryoid nodule on his last PET scan. PCP was concerned and scheduled him for followup with ENT in [place]. Has that coming up. Has Hx of melanoma on L forearm and BCC on nose as well s/p MOHS. Hx of atrial fibrillation and Hx of DVT/PE. Admission Exam Per Admitting Provider General: Alert, oriented. No acute distress Psych: Appropriate mood and affect Neuro: No gross deficits HEENT: NC/AT Chest: Nontender to palpation. CV: RRR Resp: Decreased breath sounds bilaterally, no increased effort of breathing. Abdomen: Soft, nontender, nondistended. Extremities: No edema in lower extremities bilaterally. Principal Diagnosis Right lower lobe pneumonia (bacterial) + COVID 19 Discharge Exam General: Alert, oriented. No acute distress Psych: Appropriate mood and affect Neuro: No gross deficits HEENT: NC/AT Chest: Nontender to palpation. CV: RRR Resp: Decreased breath sounds at R base otherwise CTA, no increased effort of breathing. Abdomen: Soft, nontender, nondistended. Extremities: trace LE edema bilaterally. Discharge Data Allergies Allergy/AdvReac Type Severity Reaction Status Date / Time No Known Allergies Allergy Unverified 08/10/21 19:21 Consultations 06/25/23 14:17 ED Decision to Admit Stat 06/25/23 15:01 Consult Pulmonology Routine 06/27/23 14:26 Burn CD for patient Stat Ordered Studies 06/25/23 12:26 CT abd pelvis IV con only Stat FINDINGS: Please note that the chest CT will be reported separately. Extensive right lower lobe consolidation depicted on that exam. Right lower lobe segmental bronchi are opacified. No pneumatosis, free air or portal venous gas is present. Liver, spleen and right kidney are unremarkable. There are left-sided parapelvic cysts. There is no hydronephrosis. A 3.2 cm left adrenal nodule is similar to CT of March 03, 2017. A 7.3 cm right adrenal mass has significantly increased in size. This has multiple areas of hypervascularity. This mass previously measured 3.4 cm. No pancreatic or biliary ductal dilatation is present. There is apparent interval atrophy of the pancreatic head. No well-defined mass is identified. There is no upstream dilatation. No evidence for a bowel obstruction. The caliber and wall thickness of small and large bowel are normal. 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 Aortocaval soft tissue similar to prior exam and may reflect treated tumor. Associated extensive collateral formation is again noted. This is similar to prior exam. No pelvic lymphadenopathy is present. There are no suspicious lesions within the visualized skeletal structures. Old L2 compression fracture is present. IMPRESSION: 1. Significant increase in size of a 7.3 cm right adrenal mass since CT of March 03, 2017. This mass has multiple areas of hypervascularity. This is pathologically indeterminate but suspicious for a neoplasm. Considerations include a primary adrenal lesion such as pheochromocytoma or adrenocortical carcinoma. A collision tumor with metastasis could appear similar given history of malignancy. Oncology consultation is recommended. 2. Extensive right lower lobe airspace opacity with occluded bronchi. This favors pneumonia or aspiration pneumonitis. Imaging follow-up to ensure resolution is recommended. 3. 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 Aortocaval soft tissue is also unchanged and could represent treated tumor. 4. Interval atrophy of the pancreatic head. This is of uncertain significance however no well-defined mass is identified and there is no upstream pancreatic ductal dilatation. This should be assessed on follow-up exams. CT angio chest PE protocol Stat FINDINGS: No pulmonary emboli are identified. There is no thoracic aortic dissection. There is no pericardial effusion. Mild cardiomegaly is present. There is no pneumothorax or pleural effusion. Extensive airspace opacity within the right lower lobe is noted. There are tree-in-bud nodules within the right middle lobe. Extensive suspected secretions within the bronchus intermedius are noted as well as extensive secretions within the segmental bronchi of the right lower lobe and right middle lobe which are essentially occluded. Mild enlarged subcarinal lymph node measures 3 x 1.5 cm. Prominent right hilar lymph nodes are present. No suspicious lesions within the bony thorax are present. Abdomen and pelvis CT will be reported separately. A 7.3 cm mixed attenuation right adrenal mass has significantly increased in size since CT of March 03, 2017 when it measured 3.5 cm. A 2.7 cm left adrenal nodule is similar to slightly decreased in size. IMPRESSION: 1. No pulmonary emboli identified. 2. Extensive right lower lobe consolidation. This favors pneumonia or aspiration pneumonitis given extensive secretions within the bronchus intermedius and segmental bronchi which are essentially occluded. Mild tree-in-bud nodules within the right middle lobe which also likely infectious. Pulmonary consultation is recommended for consideration for bronchoscopy to exclude possibility of an endobronchial lesion. A follow-up chest CT in 2 months to ensure resolution is recommended. 3. Mildly enlarged mediastinal and right hilar lymph nodes. These nodes may be reactive however should be assessed on follow-up CT. 4. Significant increase in size of a 7.3 cm mixed attenuation right adrenal mass since CT of March 03, 2017. This is pathologically indeterminate however suspicious for a neoplasm. Considerations include a primary adrenal lesion such as a pheochromocytoma or adrenocortical carcinoma. A collision tumor with metastasis given the history of malignancy is also within the differential. 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 COVID Acute hypoxic respiratory failure Dyspnea on exertion Sepsis Right lower lobe pneumonia (bacterial) Pt tachycardic and febrile on admission WBC >15K Chest XRAY and Chest CTA noting RLL pneumonia or aspiration pneumonitis, significant secretions, radiology recommending possible bronch. Recommend follow up CT imaging after discharge 4-6 weeks. Biofire COVID + Hypoxic to the 80s requiring 3L on admission, does not use oxygen at baseline Sputum Cx ordered and pending Blood Cx x 2 pending MRSA nares negative Procal of 0.1, lactate wnl at 1.2 EKG with sinus tachycardia with PACs, echo pending Received Cefepime and Doxycycline doses in the ED, IV Solumedrol 125mg Duonebs and mucinex scheduled, prn albuterol inhaler Decadron 6mg daily for COVID infection in the setting of acute hypoxic resp failure Oxygen supplementation as needed, wean as tolerated Pulmonology consult- appreciate recs, pt status immunocompromised 06/26 Currently pt is on RA and feeling better Seen by pulmonary med. - Cont. zosyn + doxy, can stop steroid. May be possibly dc'ed if cont. to improve on PO abx. Cont. w/ hypertonic saline, percussion vest for now 06/28 cont. to be on RA and feeling well. Seen by pulm. again -> switched to amoxicillin, ok to DC home Metastatic Veronika Cell Carcinoma Pt diagnosed in [address] Fairbanks at [facility] Has paperwork that will be placed in chart on the floor noting his history. Has been treated with cisplatin/etoposide x 5 cycles in 2014, received palliative XRT in 2016 and was started on nivolumab (Opdivo) in 2016. Currently receiving Opdivo every 10 weeks. Missed last dose on 06/21 due to having URI symptoms. Next dose due Jul 12, 2023, last dose in Mar 2023. Due to follow up with ENT in [place] for thyroid changes that PCP is concerned about. Adrenal Mass Pt with known adrenal mass Had biopsy done by IR in 2020, noting organized hemorrhage and benign adrenal cortical and medullary tissue CT abd/pelvis noting increase in size compared to 2017, however pt states that his last PET noted that the mass was unchanged. Consider Oncology follow up after further discussion with pt. Images available on CD provided and also pushed through PACS Hx of BPH On cialis, pt states he takes it daily to help with decreasing the size of the prostate. 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 Incidental findings noted on CT Pt had recent MR Venogram that showed no thrombus or tumor invasion of IVC Total Time Total Time Spent Total Time Spent (In Minutes): 40 Discharge Plan Discharge Items Patient Disposition: Home - Self-Care Reason For Visit: SOB Discharge Diagnosis: Right lower lobe pneumonia (bacterial) + COVID 19 Activity: Per Instructions section Non-emergency contact: Primary Care Provider and Oncologist Call non-emergency contact if: you have any medication questions and your symptoms worsen Follow-up/Referrals: Rosa Craft DO [Primary Care Provider] - (Date & Time 07/04/2023 11:10 AM Provider Rosa Craft DO Department [facility] ) Diet: Regular Addtl Attending Provider Instructions: Follow up with your primary care physician and oncologist. The appointment with your primary care doctor was scheduled for you for 07/04/2023. Finish antibiotic treatment with amoxicillin as prescribed. Continue taking guaifenesin and using spirometer and flutter valve. The CD with your current images of chest, abdomen, pelvis is provided for you so that your other health care providers could review them as needed. Addtl Cheese Maker Provider Instructions: Coronavirus disease 2019 (COVID-19) is a virus that causes a respiratory illness. It is caused by a coronavirus called 2019 novel coronavirus (2019- nCoV). There are many types of coronavirus. Coronaviruses are a very common cause of bronchitis. They may sometimes cause lung infection(pneumonia). Symptoms can range from mild to severe r espiratory illness. These viruses are also foundin some animals. COVID-19 was first found in people in [facility], in late 2019. In 2020, several cases of COVID-19 have been confirmed in the [place] Public health officials are working to find the source. How the virus spreads is not yet fully known. It may be spread through droplets of fluid that a person coughs or sneezes into the air. It may be spread if you touch a surface with virus on it, such as a handle or object, and then touch your mouth. What are the symptoms of COVID-19? Some people have no symptoms or mild symptoms. Symptoms may appear 2 to 14 days after contact with the virus. Symptoms can include: Fever Coughing Trouble breathing What are possible complications from COVID-19? In many cases, this virus can cause infection (pneumonia) in both lungs. In some cases, this can cause . How is COVID-19 diagnosed? Your healthcare provider will ask about your symptoms. He or she will also ask about your recent travel and contact with sick people. Testing for the virus is only done through the [facility]. If [facility] provider thinks you may have COVID- 19, he or she will work with your local health department and the CDC on testing. Follow all instructions from your healthcare provider. COVID-19 is diagnosed by: Nasal and throat swab. A cotton-tipped swab is wiped inside your nose or throat. This is done to check for viruses in your nasal mucus. Sputum culture. A small sample of mucus coughed from your lungs (sputum) is collected if you have a cough. It is checked for the virus. How is COVID-19 treated? There is currently no medicine to treat the virus. Treatment is done to help your body while it fights the virus. This is known as supportive care. Supportive care may include: Pain medicine. These include acetaminophen and ibuprofen. They are used to help ease pain and reduce fever. Bed rest. This helps your body fight the illness. For severe illness, you may need to stay in the hospital. Care during severe illness may include: IV (intravenous) fluids.These are given through a vein to help keep your body hydrated. Oxygen. Supplemental oxygen or ventilation with a breathing machine (ventilator) may be given. This is done to keep enough oxygen in your body. Are you at risk for COVID-19? If youve been to a place where people have been sick with this virus, you are at risk for infection. You are at risk if you: Recently traveled to an affected area Had contact with a sick person who recently traveled to this area Had contact with a person who was diagnosed with COVID-19 How can COVID-19 be prevented? There is no vaccine yet. The best prevention is to not have contact with the virus. The CDC advises that people should not travel to areas where there are COVID-19 outbreaks right now for any reason that is not urgent. To help prevent spreading the infection, wash your hands often, or use an alcohol-basedhand service unit operator. If you are in an area with COVID-19: Wash your hands often. Or use an alcohol-based hand service unit operator often. Only touch your eyes, nose, or mouth with clean hands. Dont have contact with people who are sick. Follow local instructions about being in public. For example, you may be told to not use public transport for a period of time. Stay away from markets that have live or animals. Wash your hands after touching any animals. Don't touch animals that may be sick. Dont share eating or drinking tools with sick people. Dont kiss someone who is sick. Clean surfaces often with disinfectant. If you were in an area with COVID-19 in the last 14 days: Call your healthcare provider. He or she can talk with local health staff to see what action may be needed. Follow all instructions from your provider. Take your temperature every morning and evening for at least 14 days. This is to check for fever. Keep a record of the readings. Keep watch for symptoms of the virus. Tell your provider right away if you have symptoms. If you were in an area with COVID-19 and have a fever or other symptoms: Dont panic. Keep in mind that other illnesses can cause similar symptoms. Stay away from work, school, and public places. Limit physical contact with family members. Don't kiss anyone or share eating or drinking utensils. Clean surfaces you touch with disinfectant. This is to help prevent the virus from spreading. Call your healthcare provider. Explain that you have been exposed to COVID-19 and have symptoms. Do this before going to any hospital. Wait for instructions. Keep in mind that healthcare staff may wear protective equipment such as masks, gowns, gloves, and eye protection. You may be put in a separate room. This is to prevent the possible virus from spreading. Tell the healthcare staff about recent travel. This includes local travel on public transport. Staff may need to find other people you have been in contact with. Follow all instructions the healthcare staff give you. If you have been diagnosed with COVID-19 Follow all instructions from your healthcare provider. Dont leave your home, except to get medical care. Call your healthcare providers office before going. They can prepare and give you instructions. This will help prevent the virus from spreading. Dont go to work, school, or public areas. Dont use public transport or taxis. Stay away from other people in your home. Have them wear face masks around you. Dont share household items or food. Wear a face mask if you can. This includes at home or in a medical facility. Cover your face with a tissue when you cough or sneeze. Throw the tissue away. Wash your hands. Wash your hands often. Caregivers should: Follow all instructions from healthcare staff. Wear a face mask and protective clothing as advised. Wash hands often. Keep track of the sick persons symptoms. Clean surfaces, fabrics, and laundry thoroughly. Keep other people away from the sick person. When to call your healthcare provider Call your healthcare provider: If youve recently traveled and have symptoms If you have been diagnosed with COVID-19 and your symptoms are worse To learn more To find out more about COVID-19, visit the CDC website at www.cdc.gov/coronavirus/2019-ncov/index.html. [employer]. [address] [place] [address]. All rights reserved. This information is not intended as a substitute for professional medical care. Always follow your healthcare professional's instructions. This information has been adapted from [employer] Home Isolation COVID-19 Instructions The following information about Home Isolation is from the CDC Website: https://www.cdc.gov/coronavirus/2019-ncov/hcp/rjcdpzny-adjivyp-ugdikd.html Stay home except to get medical care People who are mildly ill with COVID-19 are able to isolate at home during their illness. You should restrict activities outside your home, except for getting medical care. Do not go to work, school, or public areas. Avoid using public transportation, ride-sharing, or taxis. Separate yourself from other people and animals in your home People: As much as possible, you should stay in a specific room and away from other people in your home. Also, you should use a separate bathroom, if available. Animals: You should restrict contact with pets and other animals while you are sick with COVID-19, just like you would around other people. Although there have not been reports of pets or other animals becoming sick with COVID-19, it is still recommended that people sick with COVID-19 limit contact with animals until more information is known about the virus. When possible, have another member of your household care for your animals while you are sick. If you are sick with COVID-19, avoid contact with your pet, including petting, snuggling, being kissed or licked, and sharing food. If you must care for your pet or be around animals while you are sick, wash your hands before and after you interact with pets and wear a face mask. Call ahead before visiting your doctor If you have a medical appointment, call the healthcare provider and tell them that you have or may have COVID-19. This will help the healthcare providers office take steps to keep other people from getting infected or exposed. Wear a face mask You should wear a face mask when you are around other people (e.g., sharing a room or vehicle) or pets and before you enter a healthcare providers office. If you are not able to wear a face mask (for example, because it causes trouble breathing), then people who live with you should not stay in the same room with you, or they should wear a face mask if they enter your room. Cover your coughs and sneezes Cover your mouth and nose with a tissue when you cough or sneeze. Throw used tissues in a lined trash can. Immediately wash your hands with soap and water for at least 20 seconds or, if soap and water are not available, clean your hands with an alcohol-based hand service unit operator that contains at least 60% alcohol. Clean your hands often Wash your hands often with soap and water for at least 20 seconds, especially after blowing your nose, coughing, or sneezing; going to the bathroom; and before eating or preparing food. If soap and water are not readily available, use an alcohol-based hand service unit operator with at least 60% alcohol, covering all surfaces of your hands and rubbing them together until they feel dry. Soap and water are the best option if hands are visibly dirty. Avoid touching your eyes, nose, and mouth with unwashed hands. Avoid sharing personal household items You should not share dishes, drinking glasses, cups, eating utensils, towels, or bedding with other people or pets in your home. After using these items, they should be washed thoroughly with soap and water. Clean all high-touch surfaces everyday High touch surfaces include counters, tabletops, doorknobs, bathroom fixtures, toilets, phones, keyboards, tablets, and bedside tables. Also, clean any surfaces that may have blood, stool, or body fluids on them. Use a household cleaning spray or wipe, according to the label instructions. Labels contain instructions for safe and effective use of the cleaning product including precautions you should take when applying the product, such as wearing gloves and making sure you have good ventilation during use of the product. Monitor your symptoms Seek prompt medical attention if your illness is worsening (e.g., difficulty breathing).Beforeseeking care, call your healthcare provider and tell them that you have, or are being evaluated for, COVID-19. Put on a face mask before you enter the facility. These steps will help the healthcare providers office to keep other people in the office or waiting room from getting infected or exposed. Ask your healthcare provider to call the local or state health department. Persons who are placed under active monitoring or facilitated self- monitoring should follow instructions provided by their local health department or occupational health professionals, as appropriate. When working with your local health department check their available hours. If you have a medical emergency and need to call 911, notify the dispatch personnel that you have, or are being evaluated for COVID-19. If possible, put on a face mask before emergency medical services arrive. Discontinuing home isolation Patients with confirmed COVID-19 should remain under home isolation precautions until the risk of secondary transmission to others is thought to be low. The decision to discontinue home isolation precautions should be made on a [id number] basis, in consultation with healthcare providers and state and local health departments. Pending Studies at Discharge: Yes Studies:: final blood cultx and sputum cultx Stand-Alone Forms: My [facility] [employer], Smoking Cessation Medications and DC Order Prescriptions: New guaifenesin [Mucinex] 600 mg Tablet Extended Release 12hr 1,200 mg PO Q12 7 Days Qty: 28 0RF amoxicillin 500 mg Capsule 1,000 mg PO TID 5 Days Qty: 30 0RF Continued Xarelto 15 mg tablet 15 mg PO DAILY methylprednisolone 4 mg tablets,dose pack 4 mg PO UD Rx Instructions: as directed on package albuterol sulfate 90 mcg/actuation HFA aerosol inhaler See Rx Instructions .ROUTE .COMPLEX Rx Instructions: as directed Opdivo See Rx Instructions .ROUTE .COMPLEX Rx Instructions: infusion every 10 weeks Discharge Orders: Discharge Order (Routine); Ordered 06/27/23 Ordered By: Dom Eason Admission Data Admit Date/Time: 06/25/23 14:35 Attending Provider: Dom Eason Admit Provider: Erica Knight Primary Care Provider: Rosa Craft Other Providers: Erica Knight; Titi Ellis
== END 2023-06-27 16:30 | disposition home or self-care (01) | DRG 871 ==
LOC: ED 11:48 → SUATTDRO 14:35 → EDINP 14:35 → 2E 06-26 18:20